=== PATIENT | female | born 1935 | race Caucasian/White ===

== ENCOUNTER 2018-02-11 21:23 | Inpatient (IN) | payer MEDICARE, BC ==
[~2018-02-11] VITALS: Ht 152.4 cm; Wt 48.0 kg
[~2018-02-11 21:23] MED LIST: BACT800T5 PO; LISI-515 PO; TRAM50TA PO
[2018-02-11] MEDS ORDERED: BISACODYL 10 MG SUPP RECTAL PRN (21:30)
[2018-02-11] MEDS ORDERED: SODIUM CHLORIDE 0.9% FLUSH 10 ML FLUSH IV FLUSH PRN (21:30)
[2018-02-11] MEDS ORDERED: ONDANSETRON HCL 4 MG/2 ML VIAL IVP PRN (21:30)
[2018-02-11] MEDS ORDERED: NALOXONE HCL 0.4 MG/ML AMP IV PUSH PRN (21:30)
[2018-02-11] MEDS ORDERED: MAGNESIUM HYDROXIDE SUSP 30 ML CUP PO PRN (21:30)
[2018-02-11] MEDS ORDERED: LACTULOSE SYRUP 20 GM/30 ML CUP PO PRN (21:30)
[2018-02-11] MEDS ORDERED: GLUCAGON 1 MG/ML VIAL OTHER PRN (21:45)
[2018-02-11] MEDS ORDERED: DEXTROSE 50% IN WATER 50 ML VIAL(D50) IV PUSH PRN (21:45)
[2018-02-11] MEDS ORDERED: PIPERACIL-TAZO 3.375 GM PREMIX 50 ML IV SCH (22:00)
[2018-02-11] MEDS: PIPERACIL-TAZO 3.375 GM PREMIX 50 ML IV SCH (23:57)
[2018-02-12] VITALS (7 sets, daily range): BP systolic 109–185; BP diastolic 55–79; PULSE 79–99; RESP 16–20; TEMP 96.5–99.5; O2SAT 95–98
[2018-02-12] MEDS: PIPERACIL-TAZO 3.375 GM PREMIX 50 ML IV SCH ×4 (06:26→22:16)
[2018-02-12] MEDS ORDERED: INSULIN ASPART SUPPLEMENTAL SCALE SQ SCH (08:00)
[2018-02-12] MEDS: SODIUM CHLORIDE 0.9% FLUSH 10 ML FLUSH IV FLUSH SCH ×2 (08:11→21:00)
[2018-02-12 08:12] LABS: AUTOMATED NEUTROPHIL # 16.7 TH/MM3 (1.8-7.7); EOSINOPHIL % 0.1 % (0.0-4.0); HEMATOCRIT 36.7 % (35.0-46.0); HEMOGLOBIN 12.5 GM/DL (11.6-15.3); LYMPH % 2.9 % (9.0-44.0); LYMPHOCYTE # 0.5 TH/MM3 (1.0-4.8); MEAN CELL VOLUME 92.7 FL (80.0-100.0); MEAN CORPUSCULAR HEMOGLOBIN 31.5 PG (27.0-34.0); MEAN CORPUSCULAR HGB CONC 33.9 % (32.0-36.0); MEAN PLATELET VOLUME 10.3 FL (7.0-11.0); MONO % 3.9 % (0.0-8.0); MONOCYTE # 0.7 TH/MM3 (0-0.9); NEUT % 93.1 % (16.0-70.0); PLATELET COUNT 101 TH/MM3 (150-450); RED BLOOD COUNT 3.96 MIL/MM3 (4.00-5.30); RED CELL DISTRIBUTION WIDTH 12.9 % (11.6-17.2); WHITE BLOOD COUNT 17.9 TH/MM3 (4.0-11.0)
[2018-02-12] MEDS ORDERED: INSULIN HUMAN REGULAR 1,000 UNITS/10 ML VIAL SQ ONE (08:15)
[2018-02-12 08:24] LABS: CHLORIDE 104 MEQ/L (98-107); SODIUM (NA) 139 MEQ/L (136-145)
[2018-02-12 08:30] LABS: ALBUMIN 2.8 GM/DL (3.4-5.0); BICARBONATE 25.8 MEQ/L (21.0-32.0); CALCIUM 8.3 MG/DL (8.5-10.1); GLUCOSE,RANDOM 215 MG/DL (74-106)
[2018-02-12 08:31] LABS: BLOOD UREA NITROGEN 15 MG/DL (7-18)
[2018-02-12 08:33] LABS: ALT (GPT) 116 U/L (10-53); AST (GOT) 235 U/L (15-37); CREATININE 0.84 MG/DL (0.50-1.00); GLOMERULAR FILTRATION RATE 65 ML/MIN (>89)
[2018-02-12 08:35] LABS: TOTAL BILIRUBIN ADULT 4.2 MG/DL (0.2-1.0); TOTAL PROTEIN 6.6 GM/DL (6.4-8.2)
[2018-02-12 08:36] LABS: ALKALINE PHOSPHATASE 114 U/L (45-117)
[2018-02-12 08:43] LABS: BANDS 26 % (0-6); LYMPHOCYTES 1 % (9-44); METAMYELOCYTES 1 % (0-1); MONOCYTES 2 % (0-8); NEUTROPHIL # MANUAL DIFF 17.4 TH/MM3 (1.8-7.7); POLYS (SEG NEUTROPHILS) 70 % (16-70)
[2018-02-12 08:44] LABS: DOHLE BODIES PRESENT (NONE SEEN)
[2018-02-12] MEDS: DOCUSATE SODIUM 50 MG/SENNA 8.6 MG TAB PO SCH ×2 (09:00→21:00)
[2018-02-12] MEDS: DEXT 5%-NACL 0.9% 1000 ML INJ 1,000 ML IV SCH ×3 (10:50→12:45)
--- NOTE | 2018-02-12 13:02 | HHI.HP ---
[facility] Primary Care Physician Unknown Admission Diagnosis Diagnoses: Chief Complaint: Nausea and vomiting Travel History International Travel<30 Days: No Contact w/Intl Traveler <30 Da: No Traveled to Known Affected Are: No Sepsis Criteria SIRS Criteria (2 or more): Temp > 100.9 or < 96.8, Heart rate over 90, WBC > 19446, < 4000 or > 10% bands Sepsis Criteria (SIRS+source): Infect source susp/known History of Present Illness This patient is a 82-year-old female who came to the emergency room with her family after an acute onset of nausea and vomiting for 2 days. Patient has minimal complaints but her family knew something was wrong with her. He checked her blood sugar and her blood pressure and they were both elevated which is unusual for her. She was brought to the emergency room and did have evaluation which included labs and imaging of the abdomen. LFTs were elevated. The patient did appear jaundiced and the patient CT of abdomen pelvis that show gallbladder disease with some biliary dilation. Patient was transferred from the emergency room [facility] to our facility. She has minimal pain on exam and reports she feels fine. Her family is at the bedside (patient is Fijian- speaking only). She has been recommended for further evaluation by the general surgeon for possible cholecystectomy. She has been started on antibiotics because of worrisome sepsis syndrome and possible early cholangitis. Review of Systems Constitutional: DENIES: Diaphoretic episodes, Fatigue, Fever, Weight gain, Weight loss, Chills, Dizziness, Change in appetite, Night Sweats Endocrine: DENIES: Abnorml menstrual pattern, Heat/cold intolerance, Polydipsia , Polyuria, Polyphagia Eyes: DENIES: Blurred vision, Diplopia, Eye inflammation, Eye pain, Vision loss , Photosensitivity, Double Vision Ears, nose, mouth, throat: DENIES: Tinnitus, Hearing loss, Vertigo, Nasal discharge, Oral lesions, Throat pain, Hoarseness, Ear Pain, Running Nose, Epistaxis, Sinus Pain, Toothache, Odynophagia Respiratory: DENIES: Apneas, Cough, Snoring, Wheezing, Hemoptysis, Sputum production, Shortness of breath Cardiovascular: DENIES: Chest pain, Palpitations, Syncope, Dyspnea on Exertion , PND, Lower Extremity Edema, Orthopnea, Claudication Gastrointestinal: COMPLAINS OF: Nausea, Vomiting, DENIES: Abdominal pain, Black stools, Bloody stools, Constipation, Diarrhea, Difficulty Swallowing, Anorexia Genitourinary: DENIES: Abnormal vaginal bleeding, Dysmenorrhea, Dyspareunia, Sexual dysfunction, Urinary frequency, Urinary incontinence, Urgency, Hematuria , Dysuria, Nocturia, Vaginal discharge Musculoskeletal: DENIES: Joint pain, Muscle aches, Stiffness, Joint Swelling, Back pain, Neck pain Integumentary: DENIES: Abnormal pigmentation, Pruritus, Rash, Nail changes, Breast masses, Breast skin changes, Nipple discharge Hematologic/lymphatic: DENIES: Bruising, Lymphadenopathy Immunologic/allergic: DENIES: Eczema, Urticaria Neurologic: DENIES: Abnormal gait, Headache, Localized weakness, Paresthesias, Seizures, Speech Problems, Tremor, Poor Balance Psychiatric: DENIES: Anxiety, Confusion, Mood changes, Depression, Hallucinations, Agitation, Suicidal Ideation, Homicidal Ideation, Delusions Except as stated in HPI: all other systems reviewed are Neg Past Family Social History Past Medical History Diabetes Hypertension Hyperlipidemia Mild to moderate cognitive impairment Past Surgical History None Reported Medications Reviewed in the EMR Allergies: Coded Allergies: No Known Allergies (Unverified Allergy, Unknown, 02/11/18) Active Ordered Medications Reviewed in the EMR Family History Mom of lung disease at 85 Dad at 88 of dementia Social History Lives with independently spouse, no tobacco, drinks wine nightly Physical Exam Vital Signs Vital Signs Date Time Temp Pulse Resp B/P (MAP) Pulse Ox O2 Delivery O2 Flow Rate FiO2 02/12/18 12:00 98.3 87 18 136/65 (88) 97 02/12/18 08:00 99.5 90 18 120/61 (80) 95 02/12/18 04:00 98.0 94 18 116/55 (75) 95 02/12/18 00:00 96.5 99 16 185/79 (114) 98 Physical Exam GENERAL: This is a well-nourished, well-developed patient, in no apparent distress. She appears jaundiced SKIN: No rashes, ecchymoses or lesions. Cool and dry. HEAD: Atraumatic. Normocephalic. No temporal or scalp tenderness. EYES: Pupils equal round and reactive. Extraocular motions intact. There is mild scleral icterus. No injection or drainage. ENT: Nose without bleeding, purulent drainage or septal hematoma. Throat without erythema, tonsillar hypertrophy or exudate. Uvula midline. Airway patent. NECK: Trachea midline. No JVD or lymphadenopathy. Supple, nontender, no meningeal signs. CARDIOVASCULAR: Regular rate and rhythm without murmurs, gallops, or rubs. RESPIRATORY: Clear to auscultation. Breath sounds equal bilaterally. No wheezes , rales, or rhonchi. GASTROINTESTINAL: Abdomen soft, non-tender, nondistended. No hepato-splenomegaly , or palpable masses. No guarding. MUSCULOSKELETAL: Extremities without clubbing, cyanosis, or edema. No joint tenderness, effusion, or edema noted. No calf tenderness. Negative Homans sign bilaterally. NEUROLOGICAL: Awake and alert. Cranial nerves II through XII intact. Motor and sensory grossly within normal limits. Five out of 5 muscle strength in all muscle groups. Normal speech. Laboratory Laboratory Tests Test 02/12/18 07:25 White Blood Count 17.9 Red Blood Count 3.96 Hemoglobin 12.5 Hematocrit 36.7 Mean Corpuscular Volume 92.7 Mean Corpuscular Hemoglobin 31.5 Mean Corpuscular Hemoglobin Concent 33.9 Red Cell Distribution Width 12.9 Platelet Count 101 Mean Platelet Volume 10.3 Neutrophils (%) (Auto) 93.1 Lymphocytes (%) (Auto) 2.9 Monocytes (%) (Auto) 3.9 Eosinophils (%) (Auto) 0.1 Basophils (%) (Auto) 0.0 Neutrophils # (Auto) 16.7 Lymphocytes # (Auto) 0.5 Monocytes # (Auto) 0.7 Eosinophils # (Auto) 0.0 Basophils # (Auto) 0.0 CBC Comment AUTO DIFF Differential Total Cells Counted 100 Neutrophils % (Manual) 70 Band Neutrophils % 26 Lymphocytes % 1 Monocytes % 2 Neutrophils # (Manual) 17.4 Metamyelocytes 1 Differential Comment FINAL DIFF MANUAL Dohle Bodies PRESENT Platelet Estimate LOW Platelet Morphology Comment NORMAL Red Cell Morphology Comment NORMAL Blood Urea Nitrogen 15 Creatinine 0.84 Random Glucose 215 Total Protein 6.6 Albumin 2.8 Calcium Level 8.3 Alkaline Phosphatase 114 Aspartate Amino Transf (AST/SGOT) 235 Alanine Aminotransferase (ALT/SGPT) 116 Total Bilirubin 4.2 Sodium Level 139 Potassium Level 3.3 Chloride Level 104 Carbon Dioxide Level 25.8 Anion Gap 9 Estimat Glomerular Filtration Rate 65 Result Diagram: 02/12/18 0725 02/12/[address] abdomen pelvis done 02/11 Multiple small stones seen dependently within the gallbladder and in the distal common bile duct with dilatation of the intra-and extrahepatic biliary ducts. There is distention of the gallbladder. Course Patient transferred from [facility] Septic Shock Reassessment Septic shock perfusion: reassessment completed Caprini VTE Risk Assessment Caprini VTE Risk Assessment: Mod/High Risk (score >= 2) VTE Pharm Contraindication: possible pre op Caprini Risk Assessment Model Point Value = 1 Point Value = 2 Point Value = 3 Point Value = 5 Age 41-60 Minor surgery BMI > 25 kg/m2 Swollen legs Varicose veins or History of unexplained or recurrent spontaneous Oral contraceptives or hormone replacement Sepsis (< 1 month) Serious lung disease, including pneumonia (< 1 month) Abnormal pulmonary function Acute myocardial infarction Congestive heart failure (< 1 month) History of inflammatory bowel disease Medical patient at bed rest Age 61-74 Arthroscopic surgery Major open surgery (> 45 min) Laparoscopic surgery (> 45 min) Malignancy Confined to bed (> 72 hours) Immobilizing plaster cast Central venous access Age >= 75 History of VTE Family history of VTE Factor V Leiden Prothrombin [id number] Lupus anticoagulant Anticardiolipin antibodies Elevated serum homocysteine Heparin-induced thrombocytopenia Other congenital or acquired thrombophilia Stroke (< 1 month) Elective arthroplasty Hip, pelvis, or leg fracture Acute spinal cord injury (< 1 month) Prophylaxis Regimen Total Risk Factor Score Risk Level Prophylaxis Regimen 0-1 Low Early ambulation 2 Moderate Order ONE of the following: *Sequential Compression Device (SCD) *Heparin 5000 units SQ BID 3-4 Higher Order ONE of the following medications: *Heparin 5000 units SQ TID *Enoxaparin/Lovenox 40 mg SQ daily (WT < 150 kg, CrCl > 30 mL/min) *Enoxaparin/Lovenox 30 mg SQ daily (WT < 150 kg, CrCl > 10-29 mL/min) *Enoxaparin/Lovenox 30 mg SQ BID (WT < 150 kg, CrCl > 30 mL/min) AND/OR *Sequential Compression Device (SCD) 5 or more Highest Order ONE of the following medications: *Heparin 5000 units SQ TID (Preferred with Epidurals) *Enoxaparin/Lovenox 40 mg SQ daily (WT < 150 kg, CrCl > 30 mL/min) *Enoxaparin/Lovenox 30 mg SQ daily (WT < 150 kg, CrCl > 10-29 mL/min) *Enoxaparin/Lovenox 30 mg SQ BID (WT < 150 kg, CrCl > 30 mL/min) AND *Sequential Compression Device (SCD) Assessment and Plan Problem List: (1) Choledocholithiasis with acute cholecystitis with obstruction ICD Code: K80.41 - Calculus of bile duct with cholecystitis, unspecified, with obstruction Plan: Patient with elevated liver enzymes no level Continue IV antibiotics, Zosyn Surgery consulted for possible cholecystectomy N.p.o. IV hydration IV pain medication as indicated Antiemetics as indicated Perhaps early cholangitis with sepsis (elevated heart rate, leukocytosis and low -grade temperature) Follow-up blood cultures (2) DM2 (diabetes mellitus, type 2) ICD Code: E11.9 - Type 2 diabetes mellitus without complications Plan: Diet control at home, blood sugar 230 on admission We will follow with sliding scale insulin while n.p.o. and titrate needs is patient is diet changes (3) HTN (hypertension) ICD Code: I10 - Essential (primary) hypertension Plan: Controlled on lisinopril Follow to titrate medications as needed (4) Hyperlipidemia ICD Code: E78.5 - Hyperlipidemia, unspecified Plan: Currently offCurrently on any medications We will follow LFTs Likely follow-up in outpatient setting (5) Thrombocytopenia ICD Code: D69.6 - Thrombocytopenia, unspecified Plan: Follow clinically preoperatively We will assess for platelet transfusion as needed (6) Hypokalemia ICD Code: E87.6 - Hypokalemia Plan: Replace follow trend Physician Certification 2 Midnight Certification Type: Admission for Inpatient Services Order for Inpatient Services The services are ordered in accordance with Medicare regulations or non- Medicare payer requirements, as applicable. In the case of services not specified as inpatient-only, they are appropriately provided as inpatient services in accordance with the 2-midnight benchmark. Estimated LOS (days): 4 4 days is the estimated time the patient will need to remain in the hospital, assuming treatment plan goals are met and no additional complications. Post-Hospital Plan: Makenzie Spann MD Feb 12, 2018 13:02
--- NOTE | 2018-02-12 14:45 | MB ---
cc: Mason Olivarez MD DATE: 02/12/2018 REQUESTING PHYSICIAN: Dr. Makenzie Calix. REASON FOR CONSULTATION: Common bile duct stones, possible cholecystitis. HISTORY OF PRESENT ILLNESS: The patient is an 82-year-old female who presented to [facility] with right upper quadrant pain for 2 days. This was associated with nausea and vomiting. The patient underwent workup including imaging of a CT scan of the abdomen and pelvis, which did show multiple stones in the gallbladder as well as visualized stones in the common bile duct, concerning for choledocholithiasis. The laboratory values were significant for elevated leukocytosis of 17 as well as elevated transaminases, bilirubin 4.2. The patient currently is comfortable. She does have some minimal pain still in the right upper quadrant. She has no previous history or knowledge of any gallbladder disorder or gallstones. Of note, history and physical exam were conducted with the medical review specialist via remote translation system. REVIEW OF SYSTEMS: A 12-point review of systems was conducted with the patient is negative except for the pertinent positives mentioned above in the history of present illness. PAST MEDICAL HISTORY: Diabetes, hypertension, hyperlipidemia, mild cognitive impairment. PAST SURGICAL HISTORY: No previous abdominal surgeries. ALLERGIES: NO KNOWN DRUG ALLERGIES. MEDICATIONS: None. FAMILY HISTORY: Noncontributory. SOCIAL HISTORY: The patient lives independently at home with her spouse, does not use tobacco, does drink wine daily. PHYSICAL EXAMINATION: VITAL SIGNS: Temperature 98.3 degrees, heart rate 87, blood pressure 136/65, O2 saturation 97%. GENERAL: The patient is a thin, female in no acute distress. She does appear mildly uncomfortable. HEENT: Head is normocephalic, atraumatic. Pupils are round and reactive and accomodate to light. Sclerae are anicteric. Oral cavity is clear. Airway is patent. NECK: Supple. No JVD. No lymphadenopathy. CHEST: Breath sounds present bilaterally, nonlabored breathing pattern. HEART: Regular rate and rhythm without murmurs. ABDOMEN: Soft, scaphoid. She has subjective tenderness in the right upper quadrant without Daniel sign. No surgical scars. No hernias. No ascites. Normal bowel sounds. BACK: No CVA tenderness. EXTREMITIES: No clubbing, cyanosis or edema. NEUROLOGIC: The patient is alert and oriented to person and place. Nonfocal peripheral exam. Cranial nerves 2-12 are grossly intact. ASSESSMENT AND PLAN: The patient is an 82-year-old female with likely acute biliary infection associated with common bile duct stones and gallstones. I agree with the current management with IV fluids, supportive care and IV antibiotics. I would recommend a gastroenterology consultation for possible ERCP as the patient likely has common bile duct stones based on elevated laboratory values and imaging. If the patient is able to undergo ERCP successfully, we would schedule a laparoscopically after this to remove the gallbladder and the source of stone formation to prevent further choledocholithiasis. If the patient is unable to receive ERCP for any reason, we would consider cholecystectomy and common bile duct exploration. Thank you very much for this consultation. We will follow along with this patient and await gastroenterology recommendations prior to scheduling any surgery. MD SANGITA Mccormick/MIHIR , 02:16 PM , 02:44 PM
[2018-02-12] MEDS: INSULIN ASPART SUPPLEMENTAL SCALE SQ SCH ×2 (17:00→21:00)
[2018-02-13 04:00] VITALS: BP 167/79; PULSE 88; RESP 16; TEMP 97.9; O2SAT 94
[2018-02-13] MEDS: PIPERACIL-TAZO 3.375 GM PREMIX 50 ML IV SCH ×3 (05:59→17:13)
[2018-02-13] MEDS: INSULIN ASPART SUPPLEMENTAL SCALE SQ SCH ×4 (07:30→21:29)
[2018-02-13 08:00] VITALS: BP 168/75; PULSE 91; RESP 18; TEMP 98.4; O2SAT 95
[2018-02-13] MEDS: DOCUSATE SODIUM 50 MG/SENNA 8.6 MG TAB PO SCH ×2 (09:00→21:00)
[2018-02-13] MEDS: SODIUM CHLORIDE 0.9% FLUSH 10 ML FLUSH IV FLUSH SCH ×2 (09:00→21:29)
--- NOTE | 2018-02-13 09:00 | PD.CONS ---
HPI History of Present Illness This is a 82 year old F with medical history significant for dementia, therefore history obtained from daughter at bedside as well as chart review. Per daughter pt has been nauseous and vomiting for the past two days so she brought her in to the [facility] ER to be evaluated. States pt has not been complaining of any abdominal pain. She is unsure if pt has been having fevers at home. Patient had a CT of her abdomen and pelvis done in the ER which revealed multiple small stones seen dependently within the gallbladder and in the distal common bile duct with dilatation of the itntra- and extrahepatic biliary ducts. There is distention of the gallbladder. Labs revealed elevated LFTs and total bili, lipase WNL. Pt sleeping during my exam and appears in no apparent distress. Does appear jaundiced. Per daughter she does not believe pt has ever had EGD or colonoscopy. She does report patient has been losing weight but attributes this to her losing teeth and advancing dementia. (Jesica Griffiths) PFSH Past Medical History Diabetes Hypertension Hyperlipidemia Mild to moderate cognitive impairment Past Surgical History None (Jesica Griffiths) Coded Allergies: No Known Allergies (Unverified Allergy, Unknown, 02/11/18) Family History Mom of lung disease at 85 Dad at 88 of dementia Social History Lives with spouse ETOH- almost daily wine intake (Jesica Griffiths) Review of Systems Gastrointestinal: COMPLAINS OF: Nausea, Vomiting, DENIES: Abdominal pain ( Jesica Griffiths) GI Exam Vitals I&O Vital Signs Date Time Temp Pulse Resp B/P (MAP) Pulse Ox O2 Delivery O2 Flow Rate FiO2 02/13/18 04:00 97.9 88 16 167/79 (108) 94 02/12/18 23:30 98.2 79 16 124/73 (90) 96 02/12/18 20:00 96.8 87 20 127/60 (82) 96 02/12/18 16:00 97.0 83 18 109/57 (74) 98 02/12/18 12:00 98.3 87 18 136/65 (88) 97 I/O 02/12/18 02/12/18 02/12/18 02/13/18 02/13/18 02/13/18 07:00 15:00 23:00 07:00 15:00 23:00 Intake Total 50 ml 1050 ml 50 ml Balance 50 ml 1050 ml 50 ml Intake Oral 0 ml 0 ml IV Total 50 ml 1050 ml 50 ml # Voids 3 2 2 Laboratory Date/Time Source Procedure Growth Status 02/12/18 13:59 Blood Peripheral Aerobic Blood Culture Pending Received 02/12/18 13:59 Blood Peripheral Anaerobic Blood Culture Pending Received Physical Examination HEENT: Normocephalic; atraumatic CHEST: Even/unlabored CARDIAC: RRR ABDOMEN: Soft, nondistended, bowel sounds active SKIN: (+) jaundice. 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 Baseline dementia unable to give history, per daughter at bedside pt has not been complaining of abdominal pain Labs: AST-235 ALT-116 T bili-4.2 Alk phos-114 lipase-155 CT abdomen and pelvis W/O IV contrast (02/11) --> Multiple small stones seen dependently within the gallbladder and in the distal common bile duct with dilatation of the intra-and extrahepatic biliary ducts. There is distention of the gallbladder. Pt has never had EGD before Almost daily ETOH, wine GS planning on lap cholecystectomy following ERCP - Leukocytosis with left shift- secondary to above. afebrile. Zosyn - Thrombocytopenia- plts 101 Plan: ERCP today Obtain consent Keep NPO Monitor CMP, CBC Zosyn IVF Supportive care with emesis medication PRN Further recommendations based on findings of above Pt has been seen and examined by myself and Dr. Cunningham and this note is written on his behalf (Jesica Griffiths) Physician Comments Patient seen and examined Agree with above Continue with current supportive care Monitor labs ERCP today (Donavon Cunningham MD) Jesica Griffiths Feb 13, 2018 09:00 Donavon Cunningham MD Feb 13, 2018 23:01
[2018-02-13] MEDS: LISINOPRIL 20 MG TAB PO SCH (10:08)
[2018-02-13] MEDS: MORPHINE SULFATE 2 MG/ML SYRINGE IV PUSH PRN ×2 (10:22→17:12)
--- NOTE | 2018-02-13 10:52 | HHI.PR ---
Subjective Subjective Notes feels ok. awaiting ERCP Objective Vitals/I&O Vital Signs Date Time Temp Pulse Resp B/P (MAP) Pulse Ox O2 Delivery O2 Flow Rate FiO2 02/13/18 08:00 98.4 91 18 168/75 (106) 95 Labs Date/Time Source Procedure Growth Status 02/12/18 13:59 Blood Peripheral Aerobic Blood Culture Pending Received 02/12/18 13:59 Blood Peripheral Anaerobic Blood Culture Pending Received Abdomen: Non-tender, BS normal A/P Assessment and Plan choledocholithiasis, cholangitis? cholecystitis? ERCP today timing of lap dari to be determined, based on results of ERCP and how well patient tolerates procedure. dw son at bedside Clark Vargas MD Feb 13, 2018 10:52
--- NOTE | 2018-02-13 11:24 | HHI.PR ---
Subjective Remarks Pt seen and examined with family at the bedside. AFVSS. No acute events overnight. Pt denies abdominal pain, N/V, CP, SOB. Reports she is feeling fine. Family is nervous about an interval cholecystectomy because they say the patient is very difficult when it comes to healthcare and apparently she has tried leaving the hospital several times in the last 24 hours according to her family. She has mild dementia at baseline and her son-in-law reports she seemed more confused yesterday evening and pulled out her IV. Objective Vital Signs Date Time Temp Pulse Resp B/P (MAP) Pulse Ox O2 Delivery O2 Flow Rate FiO2 02/13/18 08:00 98.4 91 18 168/75 (106) 95 02/13/18 04:00 97.9 88 16 167/79 (108) 94 02/12/18 23:30 98.2 79 16 124/73 (90) 96 02/12/18 20:00 96.8 87 20 127/60 (82) 96 02/12/18 16:00 97.0 83 18 109/57 (74) 98 02/12/18 12:00 98.3 87 18 136/65 (88) 97 I/O 02/12/18 02/12/18 02/12/18 02/13/18 02/13/18 02/13/18 07:00 15:00 23:00 07:00 15:00 23:00 Intake Total 50 ml 1050 ml 50 ml Balance 50 ml 1050 ml 50 ml Intake Oral 0 ml 0 ml IV Total 50 ml 1050 ml 50 ml # Voids 3 2 2 Result Diagram: 02/12/1872402/12/18724 Objective Remarks GENERAL: Thin, elderly female resting in bed in [facility]. SKIN: Warm and dry. HEENT: AT/NC. Pupils equal and round. MMM. NECK: Supple no tender LAD or JVD. HEART: RRR no m/r/g. LUNGS: CTAB without wheezes or crackles. ABDOMEN: +BS, soft, NT, ND. EXTREMITIES: No LE edema. 2+ pedal pulses. NEURO: Awake and alert. Nonfocal. PSYCH: Appropriate mood and affect. A/P Problem List: (1) Choledocholithiasis with acute cholecystitis with obstruction ICD Code: K80.41 - Calculus of bile duct with cholecystitis, unspecified, with obstruction Assessment and Plan 82 year old female with DM, HTN, HLD, and mild dementia admitted for choledocholithiasis with possible acute cholecystitis after presenting with acute onset nausea and vomiting. 1. Choledocholithiasis with acute cholecystis and cholangitis - CT abdomen revealed multiple GS in the GB and distal CBD with dilatation of the intra- and extrahepatic biliary ducts as well as distention of the GB - LFTs and total bilirubin elevated on admission - White count 17.9 - Repeat CMP ordered but not done yet - GI consulted, planning ERCP today - General surgery consulted, timing of lap dari TBD - Appreciate intervention and recommendations of specialists - Continue IV Zosyn - IV fluids - Pain control 2. Sepsis - Met criteria on discharge with WBC>12K and HR>90 as well as suspected source of infection (cholecystitis, cholangitis) - Repeat labs ordered but not done yet - On IV Zosyn for intraabdominal infection - Lactic acid not done 2. Hypokalemia - Potassium mildly low at 3.3 - Continue to monitor 2. DM - Diet-controlled at home - SSI per protocol 3. HTN - Continue home Lisinopril DVT prophylaxis: holding chemical anticoagulation for possible surgical intervention, Shanna Infante MD Feb 13, 2018 11:24
[2018-02-13 12:00] VITALS: BP 174/76; PULSE 86; RESP 18; TEMP 98.1; O2SAT 93
[2018-02-13] MEDS ORDERED: STERILE WATER FOR INJECTION 20 ML VIAL IV ONE (12:00)
[2018-02-13] MEDS ORDERED: ONDANSETRON HCL 4 MG/2 ML VIAL IV ONE (12:00)
[2018-02-13] MEDS ORDERED: DEXAMETHASONE SOD PHOS 4 MG/ML VIAL IV ONE (12:00)
[2018-02-13] MEDS ORDERED: SUCCINYLCHOLINE CHLORIDE 100 MG/5 ML SYRINGE IV PUSH ONE (12:00)
[2018-02-13] MEDS ORDERED: LIDOCAINE HCL 1% PF 5 ML SYRINGE OTHER ONE (12:00)
[2018-02-13] MEDS ORDERED: PROPOFOL 200 MG/20 ML AMP IV ONE (12:00)
[2018-02-13] MEDS: DEXT 5%-NACL 0.9% 1000 ML INJ 1,000 ML IV SCH (12:39)
[2018-02-13] MEDS ORDERED: IOHEXOL 350 MG/ML 50 ML BTL (for RAD DIAG) OTHER ONE (13:10)
[2018-02-13] MEDS ORDERED: INDOMETHACIN 50 MG SUPP RECTAL ONE (15:00)
[2018-02-13 16:00] VITALS: BP 197/86; PULSE 90; RESP 18; TEMP 98; O2SAT 96
[2018-02-13] MEDS ORDERED: DO NOT ADM ANY ANTICOAGULANT DRUGS PRN (16:00)
[2018-02-13] MEDS: ACETAMINOPHEN 325 MG TAB PO PRN ×2 (17:12→21:23)
[2018-02-13] MEDS: ENALAPRILAT 1.25 MG/ML VIAL IV PUSH PRN (17:13)
[2018-02-13 18:33] LABS: AUTOMATED NEUTROPHIL # 11.1 TH/MM3 (1.8-7.7); BASOPHIL % 0.1 % (0.0-2.0); HEMATOCRIT 38.1 % (35.0-46.0); HEMOGLOBIN 12.7 GM/DL (11.6-15.3); LYMPH % 1.2 % (9.0-44.0); LYMPHOCYTE # 0.1 TH/MM3 (1.0-4.8); MEAN CELL VOLUME 92.8 FL (80.0-100.0); MEAN CORPUSCULAR HGB CONC 33.4 % (32.0-36.0); MEAN PLATELET VOLUME 10.4 FL (7.0-11.0); MONO % 1.5 % (0.0-8.0); MONOCYTE # 0.2 TH/MM3 (0-0.9); NEUT % 97.2 % (16.0-70.0); PLATELET COUNT 102 TH/MM3 (150-450); RED BLOOD COUNT 4.11 MIL/MM3 (4.00-5.30); WHITE BLOOD COUNT 11.5 TH/MM3 (4.0-11.0)
[2018-02-13 18:50] LABS: ALBUMIN 2.7 GM/DL (3.4-5.0); AST (GOT) 80 U/L (15-37); BICARBONATE 26.1 MEQ/L (21.0-32.0); BLOOD UREA NITROGEN 11 MG/DL (7-18); CALCIUM 8.3 MG/DL (8.5-10.1); CHLORIDE 104 MEQ/L (98-107); GLOMERULAR FILTRATION RATE 96 ML/MIN (>89); GLUCOSE,RANDOM 158 MG/DL (74-106); MAGNESIUM 1.8 MG/DL (1.5-2.5); SODIUM (NA) 139 MEQ/L (136-145)
[2018-02-13 18:51] LABS: ALT (GPT) 93 U/L (10-53)
[2018-02-13 18:52] LABS: ALKALINE PHOSPHATASE 136 U/L (45-117); TOTAL BILIRUBIN ADULT 2.1 MG/DL (0.2-1.0); TOTAL PROTEIN 6.8 GM/DL (6.4-8.2)
[2018-02-13 19:00] VITALS: BP 174/74; PULSE 75; RESP 18; TEMP 97.6; O2SAT 99
[2018-02-14] VITALS (7 sets, daily range): BP systolic 125–170; BP diastolic 63–81; PULSE 55–70; RESP 15–18; TEMP 97.4–98.3; O2SAT 96–99
[2018-02-14] MEDS: PIPERACIL-TAZO 3.375 GM PREMIX 50 ML IV SCH ×5 (00:05→23:48)
[2018-02-14] MEDS: DEXT 5%-NACL 0.9% 1000 ML INJ 1,000 ML IV SCH ×3 (05:28→23:48)
[2018-02-14 05:32] LABS: AUTOMATED NEUTROPHIL # 5.4 TH/MM3 (1.8-7.7); BASOPHIL % 0.2 % (0.0-2.0); HEMATOCRIT 35.4 % (35.0-46.0); HEMOGLOBIN 11.9 GM/DL (11.6-15.3); LYMPH % 4.9 % (9.0-44.0); LYMPHOCYTE # 0.3 TH/MM3 (1.0-4.8); MEAN CORPUSCULAR HEMOGLOBIN 30.7 PG (27.0-34.0); MEAN CORPUSCULAR HGB CONC 33.7 % (32.0-36.0); MEAN PLATELET VOLUME 10.6 FL (7.0-11.0); MONO % 6.4 % (0.0-8.0); MONOCYTE # 0.4 TH/MM3 (0-0.9); NEUT % 88.5 % (16.0-70.0); PLATELET COUNT 101 TH/MM3 (150-450); RED BLOOD COUNT 3.89 MIL/MM3 (4.00-5.30); RED CELL DISTRIBUTION WIDTH 14.1 % (11.6-17.2); WHITE BLOOD COUNT 6.1 TH/MM3 (4.0-11.0)
[2018-02-14 06:00] LABS: ALBUMIN 2.4 GM/DL (3.4-5.0); AST (GOT) 54 U/L (15-37); BICARBONATE 26.6 MEQ/L (21.0-32.0); BLOOD UREA NITROGEN 15 MG/DL (7-18); CALCIUM 8.3 MG/DL (8.5-10.1); CHLORIDE 106 MEQ/L (98-107); GLOMERULAR FILTRATION RATE 80 ML/MIN (>89); GLUCOSE,RANDOM 202 MG/DL (74-106); SODIUM (NA) 140 MEQ/L (136-145)
[2018-02-14 06:01] LABS: ALT (GPT) 75 U/L (10-53)
[2018-02-14 06:03] LABS: ALKALINE PHOSPHATASE 121 U/L (45-117); TOTAL BILIRUBIN ADULT 1.2 MG/DL (0.2-1.0); TOTAL PROTEIN 6.3 GM/DL (6.4-8.2)
[2018-02-14] MEDS: DOCUSATE SODIUM 50 MG/SENNA 8.6 MG TAB PO SCH ×2 (08:40→19:41)
[2018-02-14] MEDS: LISINOPRIL 20 MG TAB PO SCH (08:40)
[2018-02-14] MEDS: SODIUM CHLORIDE 0.9% FLUSH 10 ML FLUSH IV FLUSH SCH ×2 (08:41→19:40)
[2018-02-14] MEDS: INSULIN ASPART SUPPLEMENTAL SCALE SQ SCH ×4 (08:41→21:09)
--- NOTE | 2018-02-14 14:55 | PD.CONS ---
History of Present Illness Service Infectious disease Consult Requested By Dr Lam Reason for Consult Evaluate patient with gram-negative sepsis Primary Care Physician Unknown Diagnoses: History of Present Illness Patient seen and examined. Records reviewed. Patient is an 82-year-old female, brought into the hospital for further evaluation of nausea and vomiting and high blood pressure. According to the daughter patient really does not complain much. She had the nausea and vomiting for about 2 days, and on the day of admission the daughter took her blood sugars and they were running high and her blood pressure was around 190. That is not her usual, and she kind and looked pale. She was taken initially to the ER in the [place], and from there was transferred to the hospital for further evaluation and treatment. CT of the abdomen and pelvis showed evidence of gallstones, and stones in the common bile duct with biliary dilatation. She had elevated WBC, as well as elevated LFTs with elevated bilirubin. She has had some low-grade temps. LFTs are improving. Patient underwent ERCP, with sphincterotomy and sweep. One blood culture on the day of admission is growing gram-negative earl. Her WBC is down to normal. She has not had any nausea or vomiting. She denies any abdominal pain. Infectious disease consultation has been requested to evaluate the patient. Review of Systems Constitutional: COMPLAINS OF: Fever, DENIES: Chills, Night Sweats Eyes: DENIES: Eye pain Ears, nose, mouth, throat: DENIES: Nasal discharge, Oral lesions, Ear Pain, Sinus Pain Respiratory: DENIES: Cough, Shortness of breath Cardiovascular: DENIES: Chest pain, Palpitations, Syncope, Dyspnea on Exertion Gastrointestinal: COMPLAINS OF: Abdominal pain, Nausea, Vomiting, DENIES: Diarrhea, Difficulty Swallowing Genitourinary: DENIES: Urinary frequency, Dysuria Musculoskeletal: DENIES: Joint pain, Joint Swelling Integumentary: DENIES: Rash Hematologic/lymphatic: DENIES: Lymphadenopathy Neurologic: DENIES: Localized weakness Psychiatric: DENIES: Hallucinations Past Family Social History Allergies: Coded Allergies: No Known Allergies (Unverified Allergy, Unknown, 02/11/18) Past Medical History Diabetes Hypertension Hyperlipidemia Mild to moderate cognitive impairment Past Surgical History None Active Ordered Medications Current Medications Medications (Trade) Dose Ordered Sig/Arsenio Route Start Time Stop Time Status Last Admin (NS Flush) 2 ml UNSCH PRN IV FLUSH 4/20/18 21:30 (NS Flush) 2 ml BID IV FLUSH 02/12/18 09:00 02/14/18 08:41 (Tylenol) 650 mg Q4H PRN PO 02/11/18 21:30 02/13/18 21:23 (Zofran Inj) 4 mg Q6H PRN IVP 02/11/18 21:30 (Narcan Inj) 0.4 mg UNSCH PRN IV PUSH 02/11/18 21:30 (Nedra-Colace) 1 tab BID PO 02/12/18 09:00 02/14/18 08:40 (Senokot) 17.2 mg Q12H PRN PO 02/11/18 21:30 Dextrose/Sodium Chloride 1,000 ml @ 75 mls/hr [id number] IV 02/11/18 21:30 02/14/18 05:28 (Morphine Inj) 2 mg Q3H PRN IV PUSH 02/11/18 21:30 (D50w (Vial) Inj) 50 ml UNSCH PRN IV PUSH 02/11/18 21:45 (Glucagon Inj) 1 mg UNSCH PRN OTHER 02/11/18 21:45 02/13/18 14:24 Piperacillin Sod/ Tazobactam Sod 50 ml @ 100 mls/hr Q6HR IV 02/12/18 00:00 02/14/18 12:18 (NovoLOG SUPPLEMENTAL SCALE) 1 ACHS SLIDING SCALE SQ 02/12/18 17:00 02/14/18 12:00 (Prinivil) 20 mg DAILY PO 02/13/18 09:00 02/14/18 08:40 (Vasotec Inj) 1.25 mg Q6H PRN IV PUSH 02/12/18 13:00 02/13/18 17:13 Miscellaneous Information ALL NURSING DEPARTME... UNSCH PRN .XX 02/13/18 16:00 02/14/18 15:59 Family History Noncontributory Social History Lives with independently spouse, no tobacco, drinks wine nightly Physical Exam Vital Signs Vital Signs Date Time Temp Pulse Resp B/P (MAP) Pulse Ox O2 Delivery O2 Flow Rate FiO2 02/14/18 12:00 97.4 61 15 141/66 (91) 98 02/14/18 08:37 96 Room Air 4/23/18 08:35 98.0 70 16 125/63 (83) 96 02/14/18 04:00 97.5 67 18 140/75 (96) 99 02/14/18 00:05 63 147/67 (93) 02/14/18 00:00 98.3 69 18 170/81 (110) 97 02/13/18 21:25 Room Air 02/13/18 19:00 97.6 75 18 174/74 (107) 99 02/13/18 16:00 98.0 90 18 197/86 (123) 96 02/13/18 15:57 Nasal Cannula 3.00 02/13/18 15:55 82 16 161/70 (100) 98 Nasal Cannula 3 02/13/18 15:30 85 16 153/70 (97) 97 Nasal Cannula 3 02/13/18 15:10 100.1 87 16 158/70 (99) 97 Nasal Cannula 3 Physical Exam GENERAL: Patient is a well-nourished, well-developed female, awake and alert , not in respiratory distress. She is following commands. SKIN: Cool and dry. No generalized rash, no ecchymoses and no evidence of embolic lesions. HEAD: Atraumatic. Normocephalic. No temporal wasting, or tenderness. EYES: [place] conjunctiva. No petechia or hemorrhage. Pupils equal, round and reactive to light. Extraocular movements full and intact. No scleral icterus. No injection or drainage. EARS, NOSE AND THROAT: Nose without bleeding or purulent nasal discharge. No sinus tenderness. Mucous membranes pink and moist. No oral lesions noted. No exudate. No oral thrush. NECK: Trachea midline. Supple and not tender, no meningeal signs CARDIOVASCULAR: Regular rate and rhythm. No murmurs, rubs or gallops heard RESPIRATORY: Clear to auscultation. Breath sounds equal bilaterally. No rales , wheezing or rhonchi ABDOMEN: Soft, non-tender, mildly distended. Bowel sounds present and normoactive. No guarding. No rebound. No organomegaly. EXTREMITIES: No clubbing, cyanosis, or edema.No joint effusion, has good ROM. No calf tenderness. Well perfused and warm. NEUROLOGICAL: Awake and alert. Cranial nerves grossly intact. Motor grossly within normal limits. PSYCHIATRIC: Normal affect, calm and cooperative. LINE: No evidence of infection Laboratory Laboratory Tests Test 02/14/18 04:44 White Blood Count 6.1 Red Blood Count 3.89 Hemoglobin 11.9 Hematocrit 35.4 Mean Corpuscular Volume 91.0 Mean Corpuscular Hemoglobin 30.7 Mean Corpuscular Hemoglobin Concent 33.7 Red Cell Distribution Width 14.1 Platelet Count 101 Mean Platelet Volume 10.6 Neutrophils (%) (Auto) 88.5 Lymphocytes (%) (Auto) 4.9 Monocytes (%) (Auto) 6.4 Eosinophils (%) (Auto) 0.0 Basophils (%) (Auto) 0.2 Neutrophils # (Auto) 5.4 Lymphocytes # (Auto) 0.3 Monocytes # (Auto) 0.4 Eosinophils # (Auto) 0.0 Basophils # (Auto) 0.0 CBC Comment DIFF FINAL Differential Comment Blood Urea Nitrogen 15 Creatinine 0.70 Random Glucose 202 Total Protein 6.3 Albumin 2.4 Calcium Level 8.3 Alkaline Phosphatase 121 Aspartate Amino Transf (AST/SGOT) 54 Alanine Aminotransferase (ALT/SGPT) 75 Total Bilirubin 1.2 Sodium Level 140 Potassium Level 3.3 Chloride Level 106 Carbon Dioxide Level 26.6 Anion Gap 7 Estimat Glomerular Filtration Rate 80 Date/Time Source Procedure Growth Status 02/12/18 13:59 Blood Peripheral Aerobic Blood Culture - Preliminary Gram Negative Earl Resulted 02/12/18 13:59 Blood Peripheral Anaerobic Blood Culture - Preliminary NO GROWTH IN 2 DAYS Resulted Result Diagram: 02/14/184 02/14/18443 Imaging CT of the abdomen and pelvis reviewed Assessment and Plan Assessment and Plan IMPRESSION GNR sepsis due to cholangitis - S/P ERCP, sphincterotomy, and sweeping -Total bilirubin improving -Leukocytosis improving Probably with early dementia Has gallstones and choledocholithiasis RECOMMENDATION Follow cultures Follow LFTs Follow temps Continue Zosyn Monitor progress Will determine course of antibiotic depending on her clinical course I will follow along with you Thank you for this consultation Discussed Condition With Explained plan to the daughter and Sabra Toro MD Feb 14, 2018 14:55
--- NOTE | 2018-02-14 15:01 | HHI.GIFU ---
Subjective Remarks Resting in the bed eyes closed but arouses to verbal stimuli Denies any abdominal pain Current hemoglobin 11.9 Afebrile Family at the bedside (Andreea Kline) Objective Vitals I&O Vital Signs Date Time Temp Pulse Resp B/P (MAP) Pulse Ox O2 Delivery O2 Flow Rate FiO2 02/14/18 12:00 97.4 61 15 141/66 (91) 98 02/14/18 08:37 96 Room Air 02/14/18 08:35 98.0 70 16 125/63 (83) 96 02/14/18 04:00 97.5 67 18 140/75 (96) 99 02/14/18 00:05 63 147/67 (93) 02/14/18 00:00 98.3 69 18 170/81 (110) 97 02/13/18 21:25 Room Air 02/13/18 19:00 97.6 75 18 174/74 (107) 99 02/13/18 16:00 98.0 90 18 197/86 (123) 96 02/13/18 15:57 Nasal Cannula 3.00 02/13/18 15:55 82 16 161/70 (100) 98 Nasal Cannula 3 02/13/18 15:30 85 16 153/70 (97) 97 Nasal Cannula 3 02/13/18 15:10 100.1 87 16 158/70 (99) 97 Nasal Cannula 3 I/O 02/13/18 02/13/18 02/13/18 02/14/18 02/14/18 02/14/18 07:00 15:00 23:00 07:00 15:00 23:00 Intake Total 700 ml 750 ml 50 ml Balance 700 ml 750 ml 50 ml Intake Oral 0 ml 750 ml IV Total 50 ml Other 700 ml # Voids 2 3 3 # Bowel Movements 1 Laboratory Laboratory Tests Test 02/14/18 04:44 White Blood Count 6.1 Red Blood Count 3.89 Hemoglobin 11.9 Hematocrit 35.4 Mean Corpuscular Volume 91.0 Mean Corpuscular Hemoglobin 30.7 Mean Corpuscular Hemoglobin Concent 33.7 Red Cell Distribution Width 14.1 Platelet Count 101 Mean Platelet Volume 10.6 Neutrophils (%) (Auto) 88.5 Lymphocytes (%) (Auto) 4.9 Monocytes (%) (Auto) 6.4 Eosinophils (%) (Auto) 0.0 Basophils (%) (Auto) 0.2 Neutrophils # (Auto) 5.4 Lymphocytes # (Auto) 0.3 Monocytes # (Auto) 0.4 Eosinophils # (Auto) 0.0 Basophils # (Auto) 0.0 CBC Comment DIFF FINAL Differential Comment Blood Urea Nitrogen 15 Creatinine 0.70 Random Glucose 202 Total Protein 6.3 Albumin 2.4 Calcium Level 8.3 Alkaline Phosphatase 121 Aspartate Amino Transf (AST/SGOT) 54 Alanine Aminotransferase (ALT/SGPT) 75 Total Bilirubin 1.2 Sodium Level 140 Potassium Level 3.3 Chloride Level 106 Carbon Dioxide Level 26.6 Anion Gap 7 Estimat Glomerular Filtration Rate 80 Date/Time Source Procedure Growth Status 02/12/18 13:59 Blood Peripheral Aerobic Blood Culture - Preliminary Gram Negative Earl Resulted 02/12/18 13:59 Blood Peripheral Anaerobic Blood Culture - Preliminary NO GROWTH IN 2 DAYS Resulted Physical Exam HEENT: normocephalic; atraumatic; no jaundice. Pale skin tones NECK: Neck is supple, CHEST: Even, unlabored, no obvious rhonchi CARDIAC: Regular rate and rhythm ABDOMEN: Mild tautness, nondistended, nontender to light palpation, bowel sounds are present in all four quadrants. EXTREMITIES: No clubbing, cyanosis, or edema. SKIN: Normal; no rash; no jaundice. 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 Baseline dementia unable to give history, per daughter at bedside pt has not been complaining of abdominal pain Labs: AST-235 ALT-116 T bili-4.2 Alk phos-114 lipase-155 CT abdomen and pelvis W/O IV contrast (02/11) --> Multiple small stones seen dependently within the gallbladder and in the distal common bile duct with dilatation of the intra-and extrahepatic biliary ducts. There is distention of the gallbladder. Pt has never had EGD before Almost daily ETOH, wine GS planning on lap cholecystectomy following ERCP - Leukocytosis with left shift- secondary to above. afebrile. Zosyn - Thrombocytopenia- plts 101 02/14/2018 patient is resting in the room. Working with GS on plan of care. Currently patient denies any symptoms of abdominal pain although abdomen is taut. ID following for GNR sepsis due to cholangitis Leukocytosis resolved current WBC count 6.1. Hemoglobin 11.9 Plan: Fluoroscopy ordered. Further recommendations based on findings Monitor labs with special attention to platelet count and CBC Zosyn continue for now IVF Anti-emetics Supportive care Pt has been seen and examined by myself and Dr. Cunningham, note is written on his behalf (Andreea Kline) Physician Comments Patient seen and examined Agree with above Continue with current supportive care Monitor lab Further recommendations as per the general surgery service Not much to add from a GI perspective we will sign off Patient seen 02/14/18 (Donavon Cunningham MD) Andreea Kline Feb 14, 2018 15:00 Donavon Cunningham MD Feb 15, 2018 00:31
--- NOTE | 2018-02-14 16:39 | HHI.PR ---
Subjective Remarks Pt seen and examined with daughter at the bedside. AFVSS. No acute events overnight. ERCP done yesterday. Pt denies abdominal pain, N/V, CP, SOB. Tolerating a diet today. Objective Vital Signs Date Time Temp Pulse Resp B/P (MAP) Pulse Ox O2 Delivery O2 Flow Rate FiO2 02/14/18 16:02 Room Air 02/14/18 12:00 97.4 61 15 141/66 (91) 98 02/14/18 08:37 96 Room Air 02/14/18 08:35 98.0 70 16 125/63 (83) 96 02/14/18 04:00 97.5 67 18 140/75 (96) 99 02/14/18 00:05 63 147/67 (93) 02/14/18 00:00 98.3 69 18 170/81 (110) 97 02/13/18 21:25 Room Air 02/13/18 19:00 97.6 75 18 174/74 (107) 99 I/O 02/13/18 02/13/18 02/13/18 02/14/18 02/14/18 02/14/18 07:00 15:00 23:00 07:00 15:00 23:00 Intake Total 700 ml 750 ml 50 ml 2846 ml Balance 700 ml 750 ml 50 ml 2846 ml Intake Oral 0 ml 750 ml IV Total 50 ml 2846 ml Other 700 ml # Voids 2 3 3 # Bowel Movements 1 Result Diagram: 02/14/184 02/14/18 0444 Objective Remarks GENERAL: Thin, elderly female resting in bed in [facility]. SKIN: Warm and dry. HEENT: AT/NC. Pupils equal and round. MMM. HEART: RRR no m/r/g. LUNGS: CTAB without wheezes or crackles. ABDOMEN: +BS, soft, NT, ND. EXTREMITIES: No LE edema. NEURO: Awake and alert. A/P Problem List: (1) Choledocholithiasis with acute cholecystitis with obstruction ICD Code: K80.41 - Calculus of bile duct with cholecystitis, unspecified, with obstruction Assessment and Plan 82 year old female with DM, HTN, HLD, and mild dementia admitted for choledocholithiasis with possible acute cholecystitis after presenting with acute onset nausea and vomiting. 1. Choledocholithiasis with acute cholecystis and cholangitis - CT abdomen revealed multiple GS in the GB and distal CBD with dilatation of the intra- and extrahepatic biliary ducts as well as distention of the GB - LFTs and total bilirubin elevated on admission, trending down - GI consulted, s/p ERCP yesterday - General surgery consulted, timing of lap dari TBD - Appreciate intervention and recommendations of specialists - Continue IV Zosyn - IV fluids - Pain control 2. Sepsis/Gram negative fabricio bacteremia - Met criteria on discharge with WBC>12K and HR>90 as well as suspected source of infection (cholecystitis, cholangitis) - Repeat labs ordered but not done yet - On IV Zosyn for intraabdominal infection - Lactic acid not done - One vial blood culture growing GNR, ID consulted. Recommend continuing Zosyn 2. Hypokalemia - Potassium continues to be mildly low at 3.3 - Start KCl 20 daily - Continue to monitor 2. DM - Diet-controlled at home - SSI per protocol 3. HTN - BPs stable - Continue home Lisinopril DVT prophylaxis: holding chemical anticoagulation for possible surgical intervention, SCDs Shanna Lam MD Feb 14, 2018 16:39
[2018-02-14] MEDS ORDERED: POTASSIUM CHLORIDE 20 MEQ CONTROLLED RELEASE TAB PO ONE (16:45)
--- NOTE | 2018-02-14 18:02 | HHI.PR ---
cc: Mason Olivarez MD Subjective Subjective Notes Resting in bed No issues Family at bedside Objective Vitals/I&O Vital Signs Date Time Temp Pulse Resp B/P (MAP) Pulse Ox O2 Delivery O2 Flow Rate FiO2 02/14/18 16:02 Room Air 02/14/18 16:00 97.8 55 15 137/63 (87) 97 02/13/18 15:57 3.00 Labs Laboratory Tests Test 02/14/18 04:44 White Blood Count 6.1 Red Blood Count 3.89 Hemoglobin 11.9 Hematocrit 35.4 Mean Corpuscular Volume 91.0 Mean Corpuscular Hemoglobin 30.7 Mean Corpuscular Hemoglobin Concent 33.7 Red Cell Distribution Width 14.1 Platelet Count 101 Mean Platelet Volume 10.6 Neutrophils (%) (Auto) 88.5 Lymphocytes (%) (Auto) 4.9 Monocytes (%) (Auto) 6.4 Eosinophils (%) (Auto) 0.0 Basophils (%) (Auto) 0.2 Neutrophils # (Auto) 5.4 Lymphocytes # (Auto) 0.3 Monocytes # (Auto) 0.4 Eosinophils # (Auto) 0.0 Basophils # (Auto) 0.0 CBC Comment DIFF FINAL Differential Comment Blood Urea Nitrogen 15 Creatinine 0.70 Random Glucose 202 Total Protein 6.3 Albumin 2.4 Calcium Level 8.3 Alkaline Phosphatase 121 Aspartate Amino Transf (AST/SGOT) 54 Alanine Aminotransferase (ALT/SGPT) 75 Total Bilirubin 1.2 Sodium Level 140 Potassium Level 3.3 Chloride Level 106 Carbon Dioxide Level 26.6 Anion Gap 7 Estimat Glomerular Filtration Rate 80 Date/Time Source Procedure Growth Status 02/14/18 15:18 Blood Peripheral Aerobic Blood Culture Pending Received 02/14/18 15:18 Blood Peripheral Anaerobic Blood Culture Pending Received Cardiovascular: Regular Lungs: Clear Abdomen: Non-distended, Non-tender Extremities: No edema A/P Assessment and Plan 82 year old female with CBD stone s/p ERCP -s/p ERCP -Will plan for laparoscopic cholecystectomy on Wednesday at 1:30PM with Dr. Olivarez -Gregoria Wade/Probate Judge [employer] VEHICLE DRIVER Feb 14, 2018 18:02
[2018-02-15 00:30] VITALS: BP 151/69; PULSE 68; RESP 16; TEMP 97.1; O2SAT 96
[2018-02-15 05:14] LABS: AUTOMATED NEUTROPHIL # 6.6 TH/MM3 (1.8-7.7); BASOPHIL % 0.1 % (0.0-2.0); EOSINOPHIL % 0.6 % (0.0-4.0); HEMATOCRIT 33.9 % (35.0-46.0); HEMOGLOBIN 11.5 GM/DL (11.6-15.3); LYMPH % 10.1 % (9.0-44.0); LYMPHOCYTE # 0.8 TH/MM3 (1.0-4.8); MEAN CELL VOLUME 91.4 FL (80.0-100.0); MEAN CORPUSCULAR HEMOGLOBIN 31.1 PG (27.0-34.0); MEAN PLATELET VOLUME 10.6 FL (7.0-11.0); MONO % 8.7 % (0.0-8.0); MONOCYTE # 0.7 TH/MM3 (0-0.9); NEUT % 80.5 % (16.0-70.0); PLATELET COUNT 123 TH/MM3 (150-450); RED BLOOD COUNT 3.71 MIL/MM3 (4.00-5.30); WHITE BLOOD COUNT 8.1 TH/MM3 (4.0-11.0)
[2018-02-15 05:30] LABS: ALBUMIN 2.2 GM/DL (3.4-5.0); ALT (GPT) 60 U/L (10-53); AST (GOT) 33 U/L (15-37); BICARBONATE 26.1 MEQ/L (21.0-32.0); BLOOD UREA NITROGEN 15 MG/DL (7-18); CALCIUM 8.1 MG/DL (8.5-10.1); CHLORIDE 110 MEQ/L (98-107); CREATININE 0.51 MG/DL (0.50-1.00); GLOMERULAR FILTRATION RATE 116 ML/MIN (>89); GLUCOSE,RANDOM 124 MG/DL (74-106); SODIUM (NA) 143 MEQ/L (136-145)
[2018-02-15 05:32] LABS: ALKALINE PHOSPHATASE 100 U/L (45-117); TOTAL BILIRUBIN ADULT 0.8 MG/DL (0.2-1.0); TOTAL PROTEIN 5.4 GM/DL (6.4-8.2)
[2018-02-15] MEDS: PIPERACIL-TAZO 3.375 GM PREMIX 50 ML IV SCH ×3 (06:19→18:00)
[2018-02-15] MEDS: INSULIN ASPART SUPPLEMENTAL SCALE SQ SCH ×5 (07:35→21:00)
[2018-02-15] MEDS: SODIUM CHLORIDE 0.9% FLUSH 10 ML FLUSH IV FLUSH SCH ×2 (07:35→21:00)
[2018-02-15] MEDS: LISINOPRIL 20 MG TAB PO SCH (07:37)
[2018-02-15] MEDS: SENNOSIDES 8.6 MG TAB PO PRN ×2 (07:38→21:27)
[2018-02-15] MEDS: DEXT 5%-NACL 0.9% 1000 ML INJ 1,000 ML IV SCH ×2 (07:38→21:27)
[2018-02-15] MEDS: POTASSIUM CHLORIDE 20 MEQ CONTROLLED RELEASE TAB PO SCH (07:38)
[2018-02-15] MEDS: DOCUSATE SODIUM 50 MG/SENNA 8.6 MG TAB PO SCH ×2 (07:38→21:27)
[2018-02-15 07:47] VITALS: BP 147/67; PULSE 64; RESP 18; TEMP 97.8; O2SAT 97
--- NOTE | 2018-02-15 11:53 | HHI.PR ---
Subjective Remarks Patient reports she is feeling better. Abdominal pain significantly improved. Tolerating a diet. Objective Vitals Vital Signs Date Time Temp Pulse Resp B/P (MAP) Pulse Ox O2 Delivery O2 Flow Rate FiO2 02/15/18 07:47 97.8 64 18 147/67 (93) 97 02/15/18 00:30 97.1 68 16 151/69 (96) 96 02/14/18 20:55 98.1 65 16 156/70 (98) 98 02/14/18 16:02 Room Air 02/14/18 16:00 97.8 55 15 137/63 (87) 97 02/14/18 12:00 97.4 61 15 141/66 (91) 98 I/O 02/14/18 02/14/18 02/14/18 02/15/18 02/15/18 02/15/18 07:00 15:00 23:00 07:00 15:00 23:00 Intake Total 750 ml 510 ml 2846 ml 530 ml Balance 750 ml 510 ml 2846 ml 530 ml Intake Oral 750 ml 460 ml 480 ml IV Total 50 ml 2846 ml 50 ml # Voids 3 1 2 # Bowel Movements 0 0 Result Diagram: 02/15/18 0432 02/15/18 043 Objective Remarks GENERAL: This is a well-nourished, well-developed patient, in no apparent distress. CARDIOVASCULAR: Normal rate and regular rhythm without murmurs, gallops, or rubs. RESPIRATORY: Good respiratory efforts. Breath sounds equal and clear to auscultation bilaterally. GASTROINTESTINAL: Abdomen soft, mild right upper quadrant tenderness, non- distended. Normal active bowel sounds MUSCULOSKELETAL: Extremities without cyanosis, or edema. NEURO: Alert & Oriented x4 to person, place, time, situation. Moves all ext x4 PSYCH: Appropriate mood and affect. A/P Problem List: (1) Choledocholithiasis with acute cholecystitis with obstruction ICD Code: K80.41 - Calculus of bile duct with cholecystitis, unspecified, with obstruction (2) DM2 (diabetes mellitus, type 2) ICD Code: E11.9 - Type 2 diabetes mellitus without complications (3) HTN (hypertension) ICD Code: I10 - Essential (primary) hypertension (4) Hyperlipidemia ICD Code: E78.5 - Hyperlipidemia, unspecified (5) Thrombocytopenia ICD Code: D69.6 - Thrombocytopenia, unspecified (6) Hypokalemia ICD Code: E87.6 - Hypokalemia Assessment and Plan 82 year old female with DM, HTN, HLD, and mild dementia admitted for choledocholithiasis with possible acute cholecystitis after presenting with acute onset nausea and vomiting. 1. Choledocholithiasis with acute cholecystis and cholangitis - CT abdomen revealed multiple GS in the GB and distal CBD with dilatation of the intra- and extrahepatic biliary ducts as well as distention of the GB - LFTs and total bilirubin elevated on admission, trending down - GI consulted, s/p ERCP yesterday - General surgery following. Plan for cholecystectomy tomorrow - Continue IV Zosyn - IV fluids - Pain control 2. Sepsis/Gram negative fabricio bacteremia - Met criteria with WBC>12K and HR>90 as well as suspected source of infection ( cholecystitis, cholangitis) - On IV Zosyn for intraabdominal infection - One vial blood culture growing GNR, ID consulted. Recommend continuing Zosyn 3. Hypokalemia - Potassium continues to be mildly low at 3.3 -Continue KCl 20 daily - Continue to monitor 2. DM - Diet-controlled at home - SSI per protocol 3. HTN - BPs stable - Continue home Lisinopril DVT prophylaxis: Heparin. Hold prior to surgery. Elder Jamil MD Feb 15, 2018 11:53
[2018-02-15 12:00] VITALS: BP 166/72; PULSE 69; RESP 18; TEMP 98.5; O2SAT 98
--- NOTE | 2018-02-15 12:27 | HHI.IDPN ---
Subjective Subjective Remarks Patient is an 82-year-old female, brought into the hospital for further evaluation of nausea and vomiting and high blood pressure. According to the daughter patient really does not complain much. She had the nausea and vomiting for about 2 days, and on the day of admission the daughter took her blood sugars and they were running high and her blood pressure was around 190. That is not her usual, and she kind and looked pale. She was taken initially to the ER in the [place], and from there was transferred to the hospital for further evaluation and treatment. CT of the abdomen and pelvis showed evidence of gallstones, and stones in the common bile duct with biliary dilatation. She had elevated WBC, as well as elevated LFTs with elevated bilirubin. She has had some low-grade temps. LFTs are improving. Patient underwent ERCP, with sphincterotomy and sweep. One blood culture on the day of admission is growing gram-negative earl. Her WBC is down to normal. She has not had any nausea or vomiting. She denies any abdominal pain. Infectious disease consultation has been requested to evaluate the patient. Notes reviewed No fever Not complaining much Total bilirubin down to normal WBC normal Blood culture with gram-negative rods, no ID yet No new positive blood culture Antibiotics Zosyn Current Medications Medications (Trade) Dose Ordered Sig/Arsenio Route Start Time Stop Time Status Last Admin (NS Flush) 2 ml UNSCH PRN IV FLUSH 02/11/18 21:30 (NS Flush) 2 ml BID IV FLUSH 02/12/18 09:00 02/14/18 08:41 (Tylenol) 650 mg Q4H PRN PO 02/11/18 21:30 02/13/18 21:23 (Zofran Inj) 4 mg Q6H PRN IVP 02/11/18 21:30 (Narcan Inj) 0.4 mg UNSCH PRN IV PUSH 02/11/18 21:30 (Nedra-Colace) 1 tab BID PO 02/12/18 09:00 02/15/18 07:38 (Senokot) 17.2 mg Q12H PRN PO 02/11/18 21:30 02/15/18 07:38 Dextrose/Sodium Chloride 1,000 ml @ 75 mls/hr [id number] IV 02/11/18 21:30 02/15/18 07:38 (Morphine Inj) 2 mg Q3H PRN IV PUSH 02/11/18 21:30 (D50w (Vial) Inj) 50 ml UNSCH PRN IV PUSH 02/11/18 21:45 (Glucagon Inj) 1 mg UNSCH PRN OTHER 02/11/18 21:45 02/13/18 14:24 Piperacillin Sod/ Tazobactam Sod 50 ml @ 100 mls/hr Q6HR IV 02/12/18 00:00 02/15/18 06:19 (NovoLOG SUPPLEMENTAL SCALE) 1 ACHS SLIDING SCALE SQ 02/12/18 17:00 02/14/18 16:01 (Prinivil) 20 mg DAILY PO 02/13/18 09:00 02/15/18 07:37 (Vasotec Inj) 1.25 mg Q6H PRN IV PUSH 02/12/18 13:00 02/13/18 17:13 (KCl) 20 meq DAILY PO 02/15/18 09:00 02/15/18 07:38 Lines PIV no evidence of infection Past Medical History Diabetes Hypertension Hyperlipidemia Mild to moderate cognitive impairment Past Surgical History None Allergies: Coded Allergies: No Known Allergies (Unverified Allergy, Unknown, 02/11/18) Objective . Vital Signs Date Time Temp Pulse Resp B/P (MAP) Pulse Ox O2 Delivery O2 Flow Rate FiO2 02/15/18 12:00 98.5 69 18 166/72 (103) 98 02/15/18 07:47 97.8 64 18 147/67 (93) 97 02/15/18 00:30 97.1 68 16 151/69 (96) 96 02/14/18 20:55 98.1 65 16 156/70 (98) 98 02/14/18 16:02 Room Air 02/14/18 16:00 97.8 55 15 137/63 (87) 97 . Laboratory Tests Test 02/14/18 04:44 02/15/18 04:32 White Blood Count 6.1 TH/MM3 8.1 TH/MM3 Red Blood Count 3.89 MIL/MM3 3.71 MIL/MM3 Hemoglobin 11.9 GM/DL 11.5 GM/DL Hematocrit 35.4 % 33.9 % Mean Corpuscular Volume 91.0 FL 91.4 FL Mean Corpuscular Hemoglobin 30.7 PG 31.1 PG Mean Corpuscular Hemoglobin Concent 33.7 % 34.0 % Red Cell Distribution Width 14.1 % 14.0 % Platelet Count 101 TH/MM3 123 TH/MM3 Mean Platelet Volume 10.6 FL 10.6 FL Neutrophils (%) (Auto) 88.5 % 80.5 % Lymphocytes (%) (Auto) 4.9 % 10.1 % Monocytes (%) (Auto) 6.4 % 8.7 % Eosinophils (%) (Auto) 0.0 % 0.6 % Basophils (%) (Auto) 0.2 % 0.1 % Neutrophils # (Auto) 5.4 TH/MM3 6.6 TH/MM3 Lymphocytes # (Auto) 0.3 TH/MM3 0.8 TH/MM3 Monocytes # (Auto) 0.4 TH/MM3 0.7 TH/MM3 Eosinophils # (Auto) 0.0 TH/MM3 0.0 TH/MM3 Basophils # (Auto) 0.0 TH/MM3 0.0 TH/MM3 CBC Comment DIFF FINAL DIFF FINAL Differential Comment Laboratory Tests Test 02/14/18 04:44 02/15/18 04:32 Blood Urea Nitrogen 15 MG/DL 15 MG/DL Creatinine 0.70 MG/DL 0.51 MG/DL Random Glucose 202 MG/DL 124 MG/DL Total Protein 6.3 GM/DL 5.4 GM/DL Albumin 2.4 GM/DL 2.2 GM/DL Calcium Level 8.3 MG/DL 8.1 MG/DL Alkaline Phosphatase 121 U/L 100 U/L Aspartate Amino Transf (AST/SGOT) 54 U/L 33 U/L Alanine Aminotransferase (ALT/SGPT) 75 U/L 60 U/L Total Bilirubin 1.2 MG/DL 0.8 MG/DL Sodium Level 140 MEQ/L 143 MEQ/L Potassium Level 3.3 MEQ/L 3.3 MEQ/L Chloride Level 106 MEQ/L 110 MEQ/L Carbon Dioxide Level 26.6 MEQ/L 26.1 MEQ/L Anion Gap 7 MEQ/L 7 MEQ/L Estimat Glomerular Filtration Rate 80 ML/MIN 116 ML/MIN Microbiology Date/Time Source Procedure Growth Status 02/14/18 15:18 Blood Peripheral Aerobic Blood Culture - Preliminary NO GROWTH IN 1 DAY Resulted 02/14/18 15:18 Blood Peripheral Anaerobic Blood Culture - Preliminary NO GROWTH IN 1 DAY Resulted 02/14/18 15:12 Blood Peripheral Aerobic Blood Culture - Preliminary NO GROWTH IN 1 DAY Resulted 02/14/18 15:12 Blood Peripheral Anaerobic Blood Culture - Preliminary NO GROWTH IN 1 DAY Resulted 02/12/18 13:59 Blood Peripheral Aerobic Blood Culture - Preliminary Gram Negative Earl Resulted 02/12/18 13:59 Blood Peripheral Anaerobic Blood Culture - Preliminary NO GROWTH IN 3 DAYS Resulted 02/12/18 13:47 Blood Peripheral Aerobic Blood Culture - Preliminary NO GROWTH IN 3 DAYS Resulted 02/12/18 13:47 Blood Peripheral Anaerobic Blood Culture - Preliminary NO GROWTH IN 3 DAYS Resulted Physical Exam GENERAL: awake and alert, not in respiratory distress. She is following commands. SKIN: Cool and dry. No generalized rash, no ecchymoses and no evidence of embolic lesions. HEAD: Atraumatic. Normocephalic. No temporal wasting, or tenderness. EYES: [place] conjunctiva. No petechia or hemorrhage. Pupils equal, round and reactive to light. Extraocular movements full and intact. No scleral icterus. No injection or drainage. EARS, NOSE AND THROAT: Nose without bleeding or purulent nasal discharge. No sinus tenderness. Mucous membranes pink and moist. No oral lesions noted. No exudate. No oral thrush. NECK: Trachea midline. Supple and not tender, no meningeal signs CARDIOVASCULAR: Regular rate and rhythm. No murmurs, rubs or gallops heard RESPIRATORY: Clear to auscultation. Breath sounds equal bilaterally. No rales , wheezing or rhonchi ABDOMEN: Soft, non-tender, mildly distended. Bowel sounds present and normoactive. No guarding. No rebound. No organomegaly. EXTREMITIES: No clubbing, cyanosis, or edema.No joint effusion, has good ROM. No calf tenderness. Well perfused and warm. NEUROLOGICAL: Awake and alert. Cranial nerves grossly intact. Motor grossly within normal limits. PSYCHIATRIC: Normal affect, calm and cooperative. LINE: No evidence of infection Assessment & Plan Remarks IMPRESSION GNR sepsis due to cholangitis - S/P ERCP, sphincterotomy, and sweeping -Total bilirubin improving -Leukocytosis improving Probably with early dementia Has gallstones and choledocholithiasis RECOMMENDATION Follow cultures Continue Zosyn Monitor progress Will determine course of antibiotic depending on her clinical course, and results of cultures Sabra Toro MD Feb 15, 2018 12:26
--- NOTE | 2018-02-15 14:28 | HHI.PR ---
cc: Mason Olivarez MD Subjective Subjective Notes Up to chair No issues Objective Vitals/I&O Vital Signs Date Time Temp Pulse Resp B/P (MAP) Pulse Ox O2 Delivery O2 Flow Rate FiO2 02/15/18 12:00 98.5 69 18 166/72 (103) 98 02/14/18 16:02 Room Air 02/13/18 15:57 3.00 Labs Laboratory Tests Test 02/15/18 04:32 White Blood Count 8.1 Red Blood Count 3.71 Hemoglobin 11.5 Hematocrit 33.9 Mean Corpuscular Volume 91.4 Mean Corpuscular Hemoglobin 31.1 Mean Corpuscular Hemoglobin Concent 34.0 Red Cell Distribution Width 14.0 Platelet Count 123 Mean Platelet Volume 10.6 Neutrophils (%) (Auto) 80.5 Lymphocytes (%) (Auto) 10.1 Monocytes (%) (Auto) 8.7 Eosinophils (%) (Auto) 0.6 Basophils (%) (Auto) 0.1 Neutrophils # (Auto) 6.6 Lymphocytes # (Auto) 0.8 Monocytes # (Auto) 0.7 Eosinophils # (Auto) 0.0 Basophils # (Auto) 0.0 CBC Comment DIFF FINAL Differential Comment Blood Urea Nitrogen 15 Creatinine 0.51 Random Glucose 124 Total Protein 5.4 Albumin 2.2 Calcium Level 8.1 Alkaline Phosphatase 100 Aspartate Amino Transf (AST/SGOT) 33 Alanine Aminotransferase (ALT/SGPT) 60 Total Bilirubin 0.8 Sodium Level 143 Potassium Level 3.3 Chloride Level 110 Carbon Dioxide Level 26.1 Anion Gap 7 Estimat Glomerular Filtration Rate 116 Date/Time Source Procedure Growth Status 02/14/18 15:18 Blood Peripheral Aerobic Blood Culture - Preliminary NO GROWTH IN 1 DAY Resulted 02/14/18 15:18 Blood Peripheral Anaerobic Blood Culture - Preliminary NO GROWTH IN 1 DAY Resulted Cardiovascular: Regular Lungs: Clear Abdomen: Non-distended, Non-tender Extremities: No edema A/P Assessment and Plan 82 year old female with CBD stone s/p ERCP -s/p ERCP -Will plan for laparoscopic cholecystectomy on Wednesday at 1:30PM with Dr. Gamenthaler -Clear liquids; NPO after MN -Hold Heparin after MN -Obtain consents Gregoria Beck WATER REGISTRAR/Material Yard Clerk WATER REGISTRAR Feb 15, 2018 14:28
[2018-02-15] MEDS ORDERED: HEPARIN SODIUM - SQ 10,000 UNITS/ML VIAL SQ SCH (14:30)
[2018-02-15 15:35] VITALS: BP 177/73; PULSE 58; RESP 18; TEMP 98.6; O2SAT 97
[2018-02-15 20:00] VITALS: BP 167/79; PULSE 70; RESP 20; TEMP 98.5; O2SAT 97
[2018-02-15] MEDS ORDERED: CHLORHEXIDINE GLUCONATE 2 % 1 PACK (2 CLOTHS) TOPICAL PRN (22:00)
[2018-02-15] MEDS ORDERED: POVIDONE IODINE 5% (ANTISEPSIS KIT) 4 APPLICATIONS EACH NARE PRN (22:00)
[2018-02-15] MEDS ORDERED: SODIUM CHLORID 0.9% 500 ML IV PRN (22:00)
[2018-02-15] MEDS ORDERED: LACTATED RINGER'S 1000 ML IV PRN (22:00)
[2018-02-16] VITALS: BP 166/72; PULSE 67; RESP 20; TEMP 98.5; O2SAT 96
[2018-02-16] MEDS: ENALAPRILAT 1.25 MG/ML VIAL IV PUSH PRN ×2 (00:42→12:20)
[2018-02-16] MEDS: PIPERACIL-TAZO 3.375 GM PREMIX 50 ML IV SCH ×2 (00:43→06:13)
[2018-02-16 04:00] VITALS: BP 153/67; PULSE 67; RESP 20; TEMP 98.3; O2SAT 96
[2018-02-16 07:05] LABS: HEMOGLOBIN 11.5 GM/DL (11.6-15.3); MEAN CELL VOLUME 92.4 FL (80.0-100.0); MEAN CORPUSCULAR HEMOGLOBIN 31.3 PG (27.0-34.0); MEAN CORPUSCULAR HGB CONC 33.9 % (32.0-36.0); MEAN PLATELET VOLUME 10.2 FL (7.0-11.0); PLATELET COUNT 117 TH/MM3 (150-450); RED BLOOD COUNT 3.68 MIL/MM3 (4.00-5.30); RED CELL DISTRIBUTION WIDTH 13.8 % (11.6-17.2); WHITE BLOOD COUNT 5.3 TH/MM3 (4.0-11.0)
[2018-02-16 07:38] VITALS: BP 162/70; PULSE 68; RESP 18; TEMP 97.9; O2SAT 97
[2018-02-16 07:43] LABS: BICARBONATE 26.9 MEQ/L (21.0-32.0); CREATININE 0.56 MG/DL (0.50-1.00)
[2018-02-16] MEDS: INSULIN ASPART SUPPLEMENTAL SCALE SQ SCH ×4 (08:00→21:10)
[2018-02-16] MEDS: SODIUM CHLORIDE 0.9% FLUSH 10 ML FLUSH IV FLUSH SCH ×2 (08:39→21:00)
--- NOTE | 2018-02-16 08:54 | EKG ---
Date Performed: 02/15/2018 Time Performed: 22:03:51 PTAGE: 82 years EKG: Sinus rhythm NORMAL ECG NO PREVIOUS TRACING DOCTOR: Marcial Briones Interpretating Date/Time 02/16/2018 08:54:09
[2018-02-16] MEDS: DOCUSATE SODIUM 50 MG/SENNA 8.6 MG TAB PO SCH ×2 (09:00→20:57)
[2018-02-16] MEDS: LISINOPRIL 20 MG TAB PO SCH (09:00)
[2018-02-16] MEDS ORDERED: POTASSIUM CHLORIDE 10 MEQ CONTROLLED RELEASE TAB PO ONE (09:30)
[2018-02-16] MEDS: AMPICILLIN-SULBACTAM INJ 3 GM in SODIUM CHLORIDE 0.9% INJ 100 ML IV SCH ×4 (10:00→21:13)
--- NOTE | 2018-02-16 10:05 | HHI.IDPN ---
Subjective Subjective Remarks Patient is an 82-year-old female, brought into the hospital for further evaluation of nausea and vomiting and high blood pressure. According to the daughter patient really does not complain much. She had the nausea and vomiting for about 2 days, and on the day of admission the daughter took her blood sugars and they were running high and her blood pressure was around 190. That is not her usual, and she kind and looked pale. She was taken initially to the ER in the [place], and from there was transferred to the hospital for further evaluation and treatment. CT of the abdomen and pelvis showed evidence of gallstones, and stones in the common bile duct with biliary dilatation. She had elevated WBC, as well as elevated LFTs with elevated bilirubin. She has had some low-grade temps. LFTs are improving. Patient underwent ERCP, with sphincterotomy and sweep. One blood culture on the day of admission is growing gram-negative fabricio. Her WBC is down to normal. She has not had any nausea or vomiting. She denies any abdominal pain. Infectious disease consultation has been requested to evaluate the patient. Notes reviewed No fever Not complaining much Total bilirubin down to normal WBC normal Blood culture with Klebsiella pansensitive OR today for cholecystectomy Antibiotics Zosyn Current Medications Medications (Trade) Dose Ordered Sig/Arsenio Route Start Time Stop Time Status Last Admin (NS Flush) 2 ml UNSCH PRN IV FLUSH 02/11/18 21:30 (NS Flush) 2 ml BID IV FLUSH 02/12/18 09:00 02/16/18 08:39 (Tylenol) 650 mg Q4H PRN PO 02/11/18 21:30 02/13/18 21:23 (Zofran Inj) 4 mg Q6H PRN IVP 02/11/18 21:30 (Narcan Inj) 0.4 mg UNSCH PRN IV PUSH 02/11/18 21:30 (Nedra-Colace) 1 tab BID PO 02/12/18 09:00 02/15/18 21:27 (Senokot) 17.2 mg Q12H PRN PO 02/11/18 21:30 02/15/18 21:27 Dextrose/Sodium Chloride 1,000 ml @ 75 mls/hr [id number] IV 02/11/18 21:30 02/15/18 21:27 (Morphine Inj) 2 mg Q3H PRN IV PUSH 02/11/18 21:30 (D50w (Vial) Inj) 50 ml UNSCH PRN IV PUSH 02/11/18 21:45 (Glucagon Inj) 1 mg UNSCH PRN OTHER 02/11/18 21:45 02/13/18 14:24 (NovoLOG SUPPLEMENTAL SCALE) 1 ACHS SLIDING SCALE SQ 02/12/18 17:00 02/15/18 12:00 (Prinivil) 20 mg DAILY PO 02/13/18 09:00 02/15/18 07:37 (Vasotec Inj) 1.25 mg Q6H PRN IV PUSH 02/12/18 13:00 02/16/18 00:42 (KCl) 20 meq DAILY PO 02/15/18 09:00 02/15/18 07:38 (Heparin Inj) 5,000 units Q12H SQ 02/15/18 14:30 Future Hold 02/15/18 15:28 Lactated Ringer's 1,000 ml @ 30 mls/hr Q24H PRN IV 02/15/18 22:00 02/18/18 21:59 Sodium Chloride 500 ml @ 30 mls/hr [id number] PRN IV 02/15/18 22:00 02/18/18 21:59 (Betadine 5% Antisepsis Kit) 1 applic FLOOR LAYER APPRENTICE PRN EACH NARE 02/15/18 22:00 02/18/18 21:59 (Chlorhexidine 2% Cloth) 3 pack FLOOR LAYER APPRENTICE PRN TOPICAL 02/15/18 22:00 02/18/18 21:59 Potassium Chloride 100 ml @ 50 mls/hr Q2H IV 02/16/18 08:45 02/16/18 12:44 Ampicillin Sodium/ Sulbactam Sodium 3 gm/Sodium Chloride 100 ml @ 200 mls/hr Q6H IV 02/16/18 10:00 UNV Lines PIV no evidence of infection Past Medical History Diabetes Hypertension Hyperlipidemia Mild to moderate cognitive impairment Past Surgical History None Allergies: Coded Allergies: No Known Allergies (Unverified Allergy, Unknown, 02/11/18) Objective . Vital Signs Date Time Temp Pulse Resp B/P (MAP) Pulse Ox O2 Delivery O2 Flow Rate FiO2 02/16/18 07:38 97.9 68 18 162/70 (100) 97 02/16/18 04:00 98.3 67 20 153/67 (95) 96 02/16/18 00:00 98.5 67 20 166/72 (103) 96 02/15/18 20:00 98.5 70 20 167/79 (108) 97 02/15/18 15:35 98.6 58 18 177/73 (107) 97 02/15/18 12:00 98.5 69 18 166/72 (103) 98 . Laboratory Tests Test 02/15/18 04:32 02/16/18 05:57 White Blood Count 8.1 TH/MM3 5.3 TH/MM3 Red Blood Count 3.71 MIL/MM3 3.68 MIL/MM3 Hemoglobin 11.5 GM/DL 11.5 GM/DL Hematocrit 33.9 % 34.0 % Mean Corpuscular Volume 91.4 FL 92.4 FL Mean Corpuscular Hemoglobin 31.1 PG 31.3 PG Mean Corpuscular Hemoglobin Concent 34.0 % 33.9 % Red Cell Distribution Width 14.0 % 13.8 % Platelet Count 123 TH/MM3 117 TH/MM3 Mean Platelet Volume 10.6 FL 10.2 FL Neutrophils (%) (Auto) 80.5 % Lymphocytes (%) (Auto) 10.1 % Monocytes (%) (Auto) 8.7 % Eosinophils (%) (Auto) 0.6 % Basophils (%) (Auto) 0.1 % Neutrophils # (Auto) 6.6 TH/MM3 Lymphocytes # (Auto) 0.8 TH/MM3 Monocytes # (Auto) 0.7 TH/MM3 Eosinophils # (Auto) 0.0 TH/MM3 Basophils # (Auto) 0.0 TH/MM3 CBC Comment DIFF FINAL Differential Comment Laboratory Tests Test 02/15/18 04:32 02/16/18 05:57 Blood Urea Nitrogen 15 MG/DL 9 MG/DL Creatinine 0.51 MG/DL 0.56 MG/DL Random Glucose 124 MG/DL 147 MG/DL Total Protein 5.4 GM/DL Albumin 2.2 GM/DL Calcium Level 8.1 MG/DL 8.0 MG/DL Alkaline Phosphatase 100 U/L Aspartate Amino Transf (AST/SGOT) 33 U/L Alanine Aminotransferase (ALT/SGPT) 60 U/L Total Bilirubin 0.8 MG/DL Sodium Level 143 MEQ/L 143 MEQ/L Potassium Level 3.3 MEQ/L 3.0 MEQ/L Chloride Level 110 MEQ/L 109 MEQ/L Carbon Dioxide Level 26.1 MEQ/L 26.9 MEQ/L Anion Gap 7 MEQ/L 7 MEQ/L Estimat Glomerular Filtration Rate 116 ML/MIN 104 ML/MIN Microbiology Date/Time Source Procedure Growth Status 02/14/18 15:18 Blood Peripheral Aerobic Blood Culture - Preliminary NO GROWTH IN 1 DAY Resulted 02/14/18 15:18 Blood Peripheral Anaerobic Blood Culture - Preliminary NO GROWTH IN 1 DAY Resulted 02/14/18 15:12 Blood Peripheral Aerobic Blood Culture - Preliminary NO GROWTH IN 1 DAY Resulted 02/14/18 15:12 Blood Peripheral Anaerobic Blood Culture - Preliminary NO GROWTH IN 1 DAY Resulted Physical Exam GENERAL: awake and alert, not in respiratory distress. She is following commands. SKIN: Cool and dry. No generalized rash, no ecchymoses and no evidence of embolic lesions. HEAD: Atraumatic. Normocephalic. No temporal wasting, or tenderness. EYES: [place] conjunctiva. No petechia or hemorrhage. Pupils equal, round and reactive to light. Extraocular movements full and intact. No scleral icterus. No injection or drainage. EARS, NOSE AND THROAT: Nose without bleeding or purulent nasal discharge. No sinus tenderness. Mucous membranes pink and moist. No oral lesions noted. No exudate. No oral thrush. NECK: Trachea midline. Supple and not tender, no meningeal signs CARDIOVASCULAR: Regular rate and rhythm. No murmurs, rubs or gallops heard RESPIRATORY: Clear to auscultation. Breath sounds equal bilaterally. No rales , wheezing or rhonchi ABDOMEN: Soft, non-tender, not distended. Bowel sounds present and normoactive. No guarding. No rebound. No organomegaly. EXTREMITIES: No clubbing, cyanosis, or edema.No joint effusion, has good ROM. No calf tenderness. Well perfused and warm. NEUROLOGICAL: Awake and alert. Cranial nerves grossly intact. Motor grossly within normal limits. PSYCHIATRIC: Normal affect, calm and cooperative. LINE: No evidence of infection Assessment & Plan Remarks IMPRESSION GNR sepsis due to cholangitis - S/P ERCP, sphincterotomy, and sweeping -Total bilirubin improving -Leukocytosis improving Probably with early dementia Has gallstones and choledocholithiasis RECOMMENDATION Follow cultures Change Zosyn to Unasyn Monitor progress OR plans today by surgery Spoke with the Sabra Toro MD Feb 16, 2018 10:05
[2018-02-16] MEDS: POTASSIUM CHLOR 20 MEQ PREMIX 100 ML IV SCH ×2 (10:09→12:19)
[2018-02-16] MEDS: POTASSIUM CHLORIDE 20 MEQ CONTROLLED RELEASE TAB PO SCH (10:09)
--- NOTE | 2018-02-16 10:14 | HHI.PR ---
Subjective Remarks Patient reports she is feeling okay. Denies abdominal pain. No nausea or vomiting. Objective Vitals Vital Signs Date Time Temp Pulse Resp B/P (MAP) Pulse Ox O2 Delivery O2 Flow Rate FiO2 02/16/18 07:38 97.9 68 18 162/70 (100) 97 02/16/18 04:00 98.3 67 20 153/67 (95) 96 02/16/18 00:00 98.5 67 20 166/72 (103) 96 02/15/18 20:00 98.5 70 20 167/79 (108) 97 02/15/18 15:35 98.6 58 18 177/73 (107) 97 02/15/18 12:00 98.5 69 18 166/72 (103) 98 I/O 02/15/18 02/15/18 02/15/18 02/16/18 02/16/18 02/16/18 07:00 15:00 23:00 07:00 15:00 23:00 Intake Total 530 ml 1025 ml 750 ml Balance 530 ml 1025 ml 750 ml Intake Oral 480 ml 850 ml 0 ml IV Total 50 ml 175 ml 750 ml # Voids 2 3 2 # Bowel Movements 0 Result Diagram: 02/16/18 0557 02/16/18 0557 Objective Remarks GENERAL: This is a well-nourished, well-developed patient, in no apparent distress. CARDIOVASCULAR: Normal rate and regular rhythm without murmurs, gallops, or rubs. RESPIRATORY: Good respiratory efforts. Breath sounds equal and clear to auscultation bilaterally. GASTROINTESTINAL: Abdomen soft, mild right upper quadrant tenderness, non- distended. Normal active bowel sounds MUSCULOSKELETAL: Extremities without cyanosis, or edema. NEURO: Alert & Oriented x4 to person, place, time, situation. Moves all ext x4 PSYCH: Appropriate mood and affect. A/P Problem List: (1) Choledocholithiasis with acute cholecystitis with obstruction ICD Code: K80.41 - Calculus of bile duct with cholecystitis, unspecified, with obstruction (2) DM2 (diabetes mellitus, type 2) ICD Code: E11.9 - Type 2 diabetes mellitus without complications (3) HTN (hypertension) ICD Code: I10 - Essential (primary) hypertension (4) Hyperlipidemia ICD Code: E78.5 - Hyperlipidemia, unspecified (5) Thrombocytopenia ICD Code: D69.6 - Thrombocytopenia, unspecified (6) Hypokalemia ICD Code: E87.6 - Hypokalemia Assessment and Plan 82 year old female with DM, HTN, HLD, and mild dementia admitted for choledocholithiasis with possible acute cholecystitis after presenting with acute onset nausea and vomiting. 1. Choledocholithiasis with acute cholecystis and cholangitis - CT abdomen revealed multiple GS in the GB and distal CBD with dilatation of the intra- and extrahepatic biliary ducts as well as distention of the GB - LFTs and total bilirubin elevated on admission, trending down - GI consulted, s/p ERCP yesterday - General surgery following. Plan for cholecystectomy today - Continue IV Zosyn - IV fluids - Pain control 2. Sepsis/Gram negative fabricio bacteremia - Met criteria with WBC>12K and HR>90 as well as suspected source of infection ( cholecystitis, cholangitis) - On IV Zosyn for intraabdominal infection - One vial blood culture growing Klebsiella, ID consulted. Recommend continuing Zosyn. Repeat blood cultures so far negative 3. Hypokalemia -Replace - Continue to monitor 2. DM - Diet-controlled at home - SSI per protocol 3. HTN - BPs stable - Continue home Lisinopril DVT prophylaxis: Heparin. Hold prior to surgery. Elder Jamil MD Feb 16, 2018 10:14
[2018-02-16 11:47] VITALS: BP 175/75; PULSE 68; RESP 18; TEMP 98.3; O2SAT 95
[2018-02-16] MEDS ORDERED: KETOROLAC TROMETHAMINE 30 MG/ML (IVP) VIAL IV PUSH ONE (12:00)
[2018-02-16] MEDS ORDERED: LIDOCAINE HCL 1% PF 5 ML SYRINGE OTHER ONE (12:00)
[2018-02-16] MEDS ORDERED: GLYCOPYRROLATE 1 MG/5 ML SYRINGE IV PUSH ONE (12:00)
[2018-02-16] MEDS ORDERED: DEXAMETHASONE SOD PHOS 4 MG/ML VIAL IV ONE (12:00)
[2018-02-16] MEDS ORDERED: ONDANSETRON HCL 4 MG/2 ML VIAL IV ONE (12:00)
[2018-02-16] MEDS ORDERED: PROPOFOL 200 MG/20 ML AMP IV ONE (12:00)
[2018-02-16] MEDS ORDERED: NEOSTIGMINE 5 MG/5 ML SYRINGE IV PUSH ONE (12:00)
[2018-02-16] MEDS ORDERED: LACTATED RINGER'S 1000 ML INJ 1,000 ML IV ONE (12:00)
[2018-02-16] MEDS ORDERED: ROCURONIUM INJ 50 MG/5 ML SYRINGE IV PUSH ONE (12:00)
[2018-02-16] MEDS ORDERED: ACETAMINOPHEN 1000 MG/100 ML 100 ML IV ONE (14:10)
[2018-02-16] MEDS ORDERED: BUPIVACAINE/EPINEPHRINE 0.25% PF 10 ML VIAL INFIL ONE (15:22)
[2018-02-16] MEDS ORDERED: DO NOT ADM ANY ANTICOAGULANT DRUGS PRN (15:55)
[2018-02-16] MEDS ORDERED: ACETAMINOPHEN/HYDROcodone 325 MG/5 MG TAB PO PRN ×2 (16:00)
[2018-02-16] MEDS ORDERED: Post-op Orders (for Pharmacy) XX ONE (16:00)
--- NOTE | 2018-02-16 16:17 | MP ---
cc: Mason Olivarez MD DATE OF OPERATION: DATE OF PROCEDURE: 02/16/2018. PREOPERATIVE DIAGNOSIS: Choledocholithiasis. POSTOPERATIVE DIAGNOSIS: Choledocholithiasis. PROCEDURE PERFORMED: Laparoscopic cholecystectomy. ATTENDING SURGEON: Dr. Olivarez. VACUUM CLEANER MECHANIC: Staff. ANESTHESIA: General. BLOOD LOSS: Less than 25 mL COMPLICATIONS: None. FINDINGS: Mildly inflamed gallbladder with a slightly larger than normal cystic duct, many small stones in the gallbladder. No other intra-abdominal pathology. INDICATIONS FOR PROCEDURE: The patient is an 82-year-old female who presented to the [facility] with elevated bilirubin. Workup showed choledocholithiasis. The patient was status post ERCP with removal of common bile duct stones and her laboratory values have normalized. Risks, benefits and alternatives to laparoscopic cholecystectomy were discussed with the patient and the family with a medical translation service, as well as through the family, as the patient is non-Argent[place] speaking. She agreed to undergo the procedure. PROCEDURE: The patient was taken to the operating room and was placed in a supine position, placed under general endotracheal anesthesia. The patient's abdomen was prepped and draped in sterile fashion. Timeout was performed. The abdomen was entered through a Isabelle-type technique at the midline just above the umbilicus. A small incision was made after instillation of local anesthetic with the 11-blade scalpel. We spread through the subcutaneous tissue and opened the midline fascia under direct visualization. We placed a 10 mm balloon trocar into the abdomen through this Isabelle site without difficulty. We insufflated the abdomen and surveyed the abdomen with a 5 mm 30-degree camera. There is no evidence of any intra-abdominal pathology. There was no complication from our entry. We placed three 5 mm ports all in the right upper quadrant under visualization of the laparoscope. We were able to grasp the gallbladder, retract it upward. We were able to easily expose the triangle of [place]ot. There was a thick peritoneum over the triangle of [place] and we took this down with a hook electrocautery, with critical view of safety after we had dissected out the cystic duct and artery with [place] dissector. We divided the cystic artery and the cystic duct with 2 clips proximal. There is also some tissue with possibly a little collateral artery just posterior to the duct, which we also placed one clip on. We divided all the structures with the laparoscopic EndoShears. I used the hook electrocautery to take the gallbladder off the gallbladder fossa and removed it with an EndoCatch bag through the 10 mm periumbilical port. The gallbladder was inspected on the back table and was as expected anatomy with a clip on the cystic duct just past the infundibulum. This was passed off for permanent processing. We then irrigated out the right upper quadrant with the suction fish packer device and had excellent hemostasis. No evidence of bile leak or bleeding or any complication. All succinate was clear. We removed the ports under visualization of the laparoscope and expressed pneumoperitoneum. We closed the Isabelle fascia site with a [id number] 0 Vicryl suture. We then closed the skin with 4-0 Monocryl and Dermabond. The patient was discontinued from anesthesia and taken to the PACU in stable condition. The patient tolerated the procedure well. No apparent complications. All counts were correct. I was present and scrubbed for the entire procedure. MD ERASMO MccormickG/TL , 03:54 PM , 04:16 PM
[2018-02-16] MEDS ORDERED: *LABETALOL HCL 100 MG/20 ML VIAL PERIprocedural Use ONLY ONE (16:26)
[2018-02-16] MEDS ORDERED: *morphine SULFATE 4 MG/ML PERIprocedure ONLY ONE ×2 (16:35→16:53)
[2018-02-16] MEDS ORDERED: *ENALAPRILAT 1.25 MG/ML VIAL PERIprocedural Use ONLY ONE (16:55)
[2018-02-16] MEDS: DEXT 5%-NACL 0.9% 1000 ML INJ 1,000 ML IV SCH (19:01)
[2018-02-16 20:00] VITALS: BP 142/76; PULSE 73; RESP 18; TEMP 98.1; O2SAT 92
[2018-02-17] VITALS: BP 151/68; PULSE 68; RESP 18; TEMP 97.9; O2SAT 96
[2018-02-17] MEDS: DEXT 5%-NACL 0.9% 1000 ML INJ 1,000 ML IV SCH (02:55)
[2018-02-17] MEDS: AMPICILLIN-SULBACTAM INJ 3 GM in SODIUM CHLORIDE 0.9% INJ 100 ML IV SCH ×2 (03:18→08:41)
[2018-02-17] MEDS: ENALAPRILAT 1.25 MG/ML VIAL IV PUSH PRN (05:48)
[2018-02-17 07:49] VITALS: BP 171/77; PULSE 77; RESP 18; TEMP 97.6; O2SAT 94
[2018-02-17] MEDS: DOCUSATE SODIUM 50 MG/SENNA 8.6 MG TAB PO SCH (08:39)
[2018-02-17] MEDS: LISINOPRIL 20 MG TAB PO SCH (08:39)
[2018-02-17] MEDS: INSULIN ASPART SUPPLEMENTAL SCALE SQ SCH ×3 (08:40→17:00)
[2018-02-17] MEDS: POTASSIUM CHLORIDE 20 MEQ CONTROLLED RELEASE TAB PO SCH (08:40)
[2018-02-17] MEDS: SODIUM CHLORIDE 0.9% FLUSH 10 ML FLUSH IV FLUSH SCH (08:41)
[2018-02-17 08:44] LABS: HEMATOCRIT 35.4 % (35.0-46.0); HEMOGLOBIN 12.2 GM/DL (11.6-15.3); MEAN CELL VOLUME 91.3 FL (80.0-100.0); MEAN CORPUSCULAR HEMOGLOBIN 31.5 PG (27.0-34.0); MEAN CORPUSCULAR HGB CONC 34.5 % (32.0-36.0); PLATELET COUNT 155 TH/MM3 (150-450); RED BLOOD COUNT 3.87 MIL/MM3 (4.00-5.30); RED CELL DISTRIBUTION WIDTH 13.8 % (11.6-17.2); WHITE BLOOD COUNT 8.2 TH/MM3 (4.0-11.0)
[2018-02-17 09:15] LABS: CALCIUM 8.5 MG/DL (8.5-10.1); CREATININE 0.63 MG/DL (0.50-1.00)
[2018-02-17] MEDS ORDERED: HYDR-3516 PO (10:38)
[2018-02-17 11:46] VITALS: BP 175/77; PULSE 72; RESP 18; TEMP 97.6; O2SAT 95
--- NOTE | 2018-02-17 12:51 | HHI.IDPN ---
Subjective Subjective Remarks Patient is an 82-year-old female, brought into the hospital for further evaluation of nausea and vomiting and high blood pressure. According to the daughter patient really does not complain much. She had the nausea and vomiting for about 2 days, and on the day of admission the daughter took her blood sugars and they were running high and her blood pressure was around 190. That is not her usual, and she kind and looked pale. She was taken initially to the ER in the [facility], and from there was transferred to the hospital for further evaluation and treatment. CT of the abdomen and pelvis showed evidence of gallstones, and stones in the common bile duct with biliary dilatation. She had elevated WBC, as well as elevated LFTs with elevated bilirubin. She has had some low-grade temps. LFTs are improving. Patient underwent ERCP, with sphincterotomy and sweep. One blood culture on the day of admission is growing gram-negative fabricio. Her WBC is down to normal. She has not had any nausea or vomiting. She denies any abdominal pain. Infectious disease consultation has been requested to evaluate the patient. Notes reviewed No fever Not complaining much Had cholecystectomy yesterday Eating well Had bowel movement today No abdominal pain Total bilirubin down to normal WBC normal Blood culture with Klebsiella pansensitive No new positive blood culture Antibiotics Unasyn Current Medications Medications (Trade) Dose Ordered Sig/Arsenio Route Start Time Stop Time Status Last Admin (NS Flush) 2 ml UNSCH PRN IV FLUSH 02/11/18 21:30 (NS Flush) 2 ml BID IV FLUSH 02/12/18 09:00 02/16/18 08:39 (Tylenol) 650 mg Q4H PRN PO 02/11/18 21:30 02/13/18 21:23 (Zofran Inj) 4 mg Q6H PRN IVP 02/11/18 21:30 (Narcan Inj) 0.4 mg UNSCH PRN IV PUSH 02/11/18 21:30 (Nedra-Colace) 1 tab BID PO 02/12/18 09:00 02/17/18 08:39 (Senokot) 17.2 mg Q12H PRN PO 02/11/18 21:30 02/15/18 21:27 Dextrose/Sodium Chloride 1,000 ml @ 75 mls/hr [id number] IV 02/11/18 21:30 02/17/18 02:55 (Morphine Inj) 2 mg Q3H PRN IV PUSH 02/11/18 21:30 (D50w (Vial) Inj) 50 ml UNSCH PRN IV PUSH 02/11/18 21:45 (Glucagon Inj) 1 mg UNSCH PRN OTHER 02/11/18 21:45 02/13/18 14:24 (NovoLOG SUPPLEMENTAL SCALE) 1 ACHS SLIDING SCALE SQ 02/12/18 17:00 02/17/18 08:40 (Prinivil) 20 mg DAILY PO 02/13/18 09:00 02/17/18 08:39 (Vasotec Inj) 1.25 mg Q6H PRN IV PUSH 02/12/18 13:00 02/17/18 05:48 (KCl) 20 meq DAILY PO 02/15/18 09:00 02/17/18 08:40 (Heparin Inj) 5,000 units Q12H SQ 02/15/18 14:30 Future Hold 02/15/18 15:28 Lactated Ringer's 1,000 ml @ 30 mls/hr Q24H PRN IV 02/15/18 22:00 02/18/18 21:59 Sodium Chloride 500 ml @ 30 mls/hr [id number] PRN IV 02/15/18 22:00 02/18/18 21:59 (Betadine 5% Antisepsis Kit) 1 applic SPECIAL EDUCATION ASSISTANT PRN EACH NARE 02/15/18 22:00 02/18/18 21:59 (Chlorhexidine 2% Cloth) 3 pack SPECIAL EDUCATION ASSISTANT PRN TOPICAL 02/15/18 22:00 02/18/18 21:59 Ampicillin Sodium/ Sulbactam Sodium 3 gm/Sodium Chloride 100 ml @ 200 mls/hr Q6H IV 02/16/18 16:00 02/17/18 08:41 (Charmco 5-325 Mg) 1 tab Q4H PRN PO 02/16/18 16:00 (Charmco 5-325 Mg) 2 tab Q4H PRN PO 02/16/18 16:00 Miscellaneous Information ALL NURSING DEPARTME... UNSCH PRN .XX 02/16/18 15:55 02/17/18 15:54 Lines PIV no evidence of infection Past Medical History Diabetes Hypertension Hyperlipidemia Mild to moderate cognitive impairment Past Surgical History None Allergies: Coded Allergies: No Known Allergies (Unverified Allergy, Unknown, 02/11/18) Objective . Vital Signs Date Time Temp Pulse Resp B/P (MAP) Pulse Ox O2 Delivery O2 Flow Rate FiO2 02/17/18 11:46 97.6 72 18 175/77 (109) 95 02/17/18 07:49 97.6 77 18 171/77 (108) 94 02/17/18 00:00 97.9 68 18 151/68 (95) 96 02/16/18 20:00 98.1 73 18 142/76 (98) 92 02/16/18 17:05 97.2 67 16 157/74 (101) 100 Nasal Cannula 2 02/16/18 16:45 71 16 187/90 (122) 100 Nasal Cannula 2 02/16/18 16:30 75 16 199/88 (125) 99 Nasal Cannula 2 02/16/18 16:15 84 16 182/86 (118) 97 Nasal Cannula 2 02/16/18 16:00 90 16 167/70 (102) 99 Nasal Cannula 2 02/16/18 15:55 97.1 103 16 132/75 (94) 100 Nasal Cannula 2 . Laboratory Tests Test 02/16/18 05:57 02/17/18 08:15 White Blood Count 5.3 TH/MM3 8.2 TH/MM3 Red Blood Count 3.68 MIL/MM3 3.87 MIL/MM3 Hemoglobin 11.5 GM/DL 12.2 GM/DL Hematocrit 34.0 % 35.4 % Mean Corpuscular Volume 92.4 FL 91.3 FL Mean Corpuscular Hemoglobin 31.3 PG 31.5 PG Mean Corpuscular Hemoglobin Concent 33.9 % 34.5 % Red Cell Distribution Width 13.8 % 13.8 % Platelet Count 117 TH/MM3 155 TH/MM3 Mean Platelet Volume 10.2 FL 10.0 FL Laboratory Tests Test 02/16/18 05:57 02/17/18 08:15 Blood Urea Nitrogen 9 MG/DL 5 MG/DL Creatinine 0.56 MG/DL 0.63 MG/DL Random Glucose 147 MG/DL 238 MG/DL Calcium Level 8.0 MG/DL 8.5 MG/DL Sodium Level 143 MEQ/L 141 MEQ/L Potassium Level 3.0 MEQ/L 3.6 MEQ/L Chloride Level 109 MEQ/L 106 MEQ/L Carbon Dioxide Level 26.9 MEQ/L 28.0 MEQ/L Anion Gap 7 MEQ/L 7 MEQ/L Estimat Glomerular Filtration Rate 104 ML/MIN 91 ML/MIN Microbiology Date/Time Source Procedure Growth Status 02/14/18 15:18 Blood Peripheral Aerobic Blood Culture - Preliminary NO GROWTH IN 3 DAYS Resulted 02/14/18 15:18 Blood Peripheral Anaerobic Blood Culture - Preliminary NO GROWTH IN 3 DAYS Resulted 02/14/18 15:12 Blood Peripheral Aerobic Blood Culture - Preliminary NO GROWTH IN 3 DAYS Resulted 02/14/18 15:12 Blood Peripheral Anaerobic Blood Culture - Preliminary NO GROWTH IN 3 DAYS Resulted Physical Exam GENERAL: awake and alert, not in respiratory distress. She is following commands. Up in a chair SKIN: Cool and dry. No generalized rash, no ecchymoses and no evidence of embolic lesions. HEAD: Atraumatic. Normocephalic. No temporal wasting, or tenderness. EYES: [place] conjunctiva. No petechia or hemorrhage. Pupils equal, round and reactive to light. Extraocular movements full and intact. No scleral icterus. No injection or drainage. EARS, NOSE AND THROAT: Nose without bleeding or purulent nasal discharge. No sinus tenderness. Mucous membranes pink and moist. No oral lesions noted. No exudate. No oral thrush. NECK: Trachea midline. Supple and not tender, no meningeal signs CARDIOVASCULAR: Regular rate and rhythm. No murmurs, rubs or gallops heard RESPIRATORY: Clear to auscultation. Breath sounds equal bilaterally. No rales , wheezing or rhonchi ABDOMEN: Soft, non-tender, not distended. Bowel sounds present and normoactive. No guarding. No rebound. No organomegaly. Small incisions okay dry EXTREMITIES: No clubbing, cyanosis, or edema. No joint effusion, has good ROM. No calf tenderness. Well perfused and warm. NEUROLOGICAL: Awake and alert. Cranial nerves grossly intact. Motor grossly within normal limits. PSYCHIATRIC: Normal affect, calm and cooperative. LINE: No evidence of infection Assessment & Plan Remarks IMPRESSION GNR sepsis due to cholangitis, cholecystitis - S/P ERCP, sphincterotomy, and sweeping -Total bilirubin improving -Leukocytosis improving Probably with early dementia Has gallstones and choledocholithiasis RECOMMENDATION Stop IV antibiotic Augmentin 500 3 times daily for 10 days Patient clinically stable from ID standpoint Discussed plan with the and daughter Sabra Toro MD Feb 17, 2018 12:51
[2018-02-17 13:31] VITALS: O2SAT 95
[2018-02-17] MEDS ORDERED: AMOXICILLIN/CLAVULANATE K 500 MG TAB PO SCH (14:00)
--- NOTE | 2018-02-17 14:07 | HHI.PR ---
Subjective Subjective Notes Resting in chair No issues overnight Pain controlled Objective Vitals/I&O Vital Signs Date Time Temp Pulse Resp B/P (MAP) Pulse Ox O2 Delivery O2 Flow Rate FiO2 02/17/18 13:31 95 21 02/17/18 11:46 97.6 72 18 175/77 (109) 02/16/18 17:05 Nasal Cannula 2 Labs Laboratory Tests Test 02/17/18 08:15 White Blood Count 8.2 Red Blood Count 3.87 Hemoglobin 12.2 Hematocrit 35.4 Mean Corpuscular Volume 91.3 Mean Corpuscular Hemoglobin 31.5 Mean Corpuscular Hemoglobin Concent 34.5 Red Cell Distribution Width 13.8 Platelet Count 155 Mean Platelet Volume 10.0 Blood Urea Nitrogen 5 Creatinine 0.63 Random Glucose 238 Calcium Level 8.5 Sodium Level 141 Potassium Level 3.6 Chloride Level 106 Carbon Dioxide Level 28.0 Anion Gap 7 Estimat Glomerular Filtration Rate 91 Date/Time Source Procedure Growth Status 02/14/18 15:18 Blood Peripheral Aerobic Blood Culture - Preliminary NO GROWTH IN 3 DAYS Resulted 02/14/18 15:18 Blood Peripheral Anaerobic Blood Culture - Preliminary NO GROWTH IN 3 DAYS Resulted Cardiovascular: Regular Lungs: Clear Abdomen: Other (lap sites c/d/i; no tenderness ) Extremities: No edema A/P Assessment and Plan 82 year old female with CBD stone s/p ERCP -POD1 lap dari -s/p ERCP -Regular diet -Pain control -GS clear for DC; follow up in 10-14 days -Okay to shower; pat incisions dry; no bathtubs Attending Statement The exam, history, and the medical decision-making described in the above note were completed with the assistance of the mid-level provider. I reviewed and agree with the findings presented. I attest that I had a [id number] encounter with the patient on the same day, and personally performed and documented my assessment and findings in the medical record. Patient s/p lap dari stable, postop pain on exam ok to DC home, fu in 2 weeks Gregoria Beck/First Eric BOOKER Feb 17, 2018 14:06 Mason Olivarez MD Feb 18, 2018 16:55
[2018-02-17 15:51] VITALS: BP 197/91; PULSE 81; RESP 18; TEMP 97.7; O2SAT 96
[2018-02-17] MEDS ORDERED: Amoxicil-Clavulanate PO (16:23)
--- NOTE | 2018-02-17 16:23 | HHI.DCPOC ---
Discharge Care Plan Diagnosis: (1) Choledocholithiasis with acute cholecystitis with obstruction (2) HTN (hypertension) (3) DM2 (diabetes mellitus, type 2) Goals to Promote Your Health * To prevent worsening of your condition and complications * To maintain your health at the optimal level Directions to Meet Your Goals Take your medications as prescribed Follow your dietary instruction Follow activity as directed Keep your appointments as scheduled Take your immunizations and boosters as scheduled If your symptoms worsen call your PCP, if no PCP go to Urgent Care Center or Emergency Room Smoking is Dangerous to Your Health. Avoid second hand smoke Call the 24-hour hour crisis hotline for domestic abuse at Elder Jamil MD Feb 17, 2018 16:23
--- NOTE | 2018-02-17 16:28 | HHI.DS ---
Discharge Summary Admission Date Feb 15, 2018 at 09:16 Discharge Date: Feb 17, 2018 Admitting Diagnosis (1) Choledocholithiasis with acute cholecystitis with obstruction ICD Code: K80.41 - Calculus of bile duct with cholecystitis, unspecified, with obstruction (2) DM2 (diabetes mellitus, type 2) ICD Code: E11.9 - Type 2 diabetes mellitus without complications (3) HTN (hypertension) ICD Code: I10 - Essential (primary) hypertension (4) Hyperlipidemia ICD Code: E78.5 - Hyperlipidemia, unspecified (5) Thrombocytopenia ICD Code: D69.6 - Thrombocytopenia, unspecified (6) Hypokalemia ICD Code: E87.6 - Hypokalemia Procedures Laparoscopic cholecystectomy Brief History - From Admission HPI from the admitting physician This patient is a 82-year-old female who came to the emergency room with her family after an acute onset of nausea and vomiting for 2 days. Patient has minimal complaints but her family knew something was wrong with her. He checked her blood sugar and her blood pressure and they were both elevated which is unusual for her. She was brought to the emergency room and did have evaluation which included labs and imaging of the abdomen. LFTs were elevated. The patient did appear jaundiced and the patient CT of abdomen pelvis that show gallbladder disease with some biliary dilation. Patient was transferred from the emergency room [place] to our facility. She has minimal pain on exam and reports she feels fine. Her family is at the bedside (patient is [place]- speaking only). She has been recommended for further evaluation by the general surgeon for possible cholecystectomy. She has been started on antibiotics because of worrisome sepsis syndrome and possible early cholangitis. CBC/BMP: 02/17/18 0815 02/17/18 0815 Significant Findings Laboratory Tests Test 02/15/18 04:32 02/16/18 05:57 02/17/18 08:15 Red Blood Count 3.71 MIL/MM3 (4.00-5.30) 3.68 MIL/MM3 (4.00-5.30) 3.87 MIL/MM3 (4.00-5.30) Hemoglobin 11.5 GM/DL (11.6-15.3) 11.5 GM/DL (11.6-15.3) Hematocrit 33.9 % (35.0-46.0) 34.0 % (35.0-46.0) Platelet Count 123 TH/MM3 (150-450) 117 TH/MM3 (150-450) Neutrophils (%) (Auto) 80.5 % (16.0-70.0) Monocytes (%) (Auto) 8.7 % (0.0-8.0) Lymphocytes # (Auto) 0.8 TH/MM3 (1.0-4.8) Random Glucose 124 MG/DL (74-106) 147 MG/DL (74-106) 238 MG/DL (74-106) Total Protein 5.4 GM/DL (6.4-8.2) Albumin 2.2 GM/DL (3.4-5.0) Calcium Level 8.1 MG/DL (8.5-10.1) 8.0 MG/DL (8.5-10.1) Alanine Aminotransferase (ALT/SGPT) 60 U/L (10-53) Potassium Level 3.3 MEQ/L (3.5-5.1) 3.0 MEQ/L (3.5-5.1) Chloride Level 110 MEQ/L (98-107) 109 MEQ/L (98-107) Blood Urea Nitrogen 5 MG/DL (7-18) PE at Discharge GENERAL: This is a well-nourished, well-developed patient, in no apparent distress. CARDIOVASCULAR: Normal rate and regular rhythm without murmurs, gallops, or rubs. RESPIRATORY: Good respiratory efforts. Breath sounds equal and clear to auscultation bilaterally. GASTROINTESTINAL: Abdomen soft, mild right upper quadrant tenderness, non- distended. Normal active bowel sounds MUSCULOSKELETAL: Extremities without cyanosis, or edema. NEURO: Alert & Oriented x4 to person, place, time, situation. Moves all ext x4 PSYCH: Appropriate mood and affect. Pt update on day of discharge Patient reports she is feeling well today. No abdominal pain. Tolerated her diet. Discussed with family at bedside. Eager to go home. Hospital Course 82 year old female with DM, HTN, HLD, and mild dementia admitted for choledocholithiasis with possible acute cholecystitis after presenting with acute onset nausea and vomiting. Evaluation and treatment course detailed below : 1. Choledocholithiasis with acute cholecystis and cholangitis - CT abdomen revealed multiple GS in the GB and distal CBD with dilatation of the intra- and extrahepatic biliary ducts as well as distention of the GB - LFTs and total bilirubin elevated on admission, trending down - GI consulted, s/p ERCP - General surgery f followed. Patient underwent laparoscopic cholecystectomy. Symptoms resolved. She was followed by infectious disease, treated with IV Zosyn and transitioned to oral Augmentin for another 10 days. 2. Sepsis/Gram negative fabricio bacteremia - Met criteria with WBC>12K and HR>90 as well as suspected source of infection ( cholecystitis, cholangitis) -Status post IV Zosyn. Repeat blood cultures negative. Patient discharged on Augmentin to finish the course of treatment per ID recommendations. 3. Hypokalemia -Replaced 2. DM - Diet-controlled at home - SSI per protocol 3. HTN - BPs stable - Continue home Lisinopril Pt Condition on Discharge: Good Discharge Disposition: Discharge Home Discharge Time: <= 30 minutes Discharge Instructions DIET: Follow Instructions for: Heart Healthy Diet Activities you can perform: Regular-No Restrictions Follow up Referrals: Surgical - 2 Weeks with Mason Olivarez MD New Medications: Hydrocodone/Acetaminophen (Hydrocodone-Acetamin 5-325 mg) 5 Mg-325 Mg Tablet 1 TAB PO Q4H PRN for pain, #20 TAB [Amoxicil-Clavulanate] () 500 MG TAB 500 MG PO Q8HR, #30 TAB Continued Medications: Lisinopril (Lisinopril) 20 Mg Tab 20 MG PO DAILY, #30 TAB 0 Refills Elder Jamil MD Feb 17, 2018 16:28
== END 2018-02-17 19:24 | disposition home or self-care (01) | DRG 854 ==
LOC: PHEDDLT 23:28 → PH3B 23:38 → N06B 02-12 23:07 → OBSVTOIN 02-15 09:16
PROVIDERS: ADMIT Family Medicine; ATTEND Family Medicine
PROC: 0FC98ZZ Extirpation of Matter from Common Bile Duct, Via Natural or Artificial Opening Endoscopic (ICD-10-PCS; 2018-02-13)
PROC: 0FT44ZZ Resection of Gallbladder, Percutaneous Endoscopic Approach (ICD-10-PCS; principal; 2018-02-16 14:32)
DX: A41.50 Gram-negative sepsis, unspecified (principal); K83.0 Cholangitis; K80.63 Calculus of gallbladder and bile duct with acute cholecystitis with obstruction; D69.6 Thrombocytopenia, unspecified; E11.9 Type 2 diabetes mellitus without complications; I10 Essential (primary) hypertension; B96.1 Klebsiella pneumoniae [K. pneumoniae] as the cause of diseases classified elsewhere; E78.5 Hyperlipidemia, unspecified; E87.6 Hypokalemia; G31.84 Mild cognitive impairment of uncertain or unknown etiology
CPT/HCPCS: 74176; 74330; 76000; 80048; 80053; 81001; 82948; 83605; 83690; 83735; 83880; 84484; 85007; 85025; 85027; 85610; 85730; 87040; 87077; 87186; 87205; 88304; 93005; 99285; C1769; G8987-GP; G8988-GP; J0131; J0295; J0330; J1100; J1610; J1644; J1815; J1885; J2270; J2405; J2543; J2710; J3010; J3480; J7030; J7042; J7120; Q9967